=== PATIENT | male | born 1950 | race Caucasian/White ===

== ENCOUNTER 2017-05-11 17:58 | Inpatient (IN) | payer MEDICARE, OTHER ==
[2017-05-11] MEDS ORDERED: IPRATROPIUM-ALBUTEROL 3 ML NEB INHALATION PRN (22:14)
[2017-05-11] MEDS ORDERED: NITROGLYCERIN SL TABS 0.4 MG TAB SUBLINGUAL PRN (22:14)
[2017-05-11] MEDS ORDERED: ALBUTEROL INHALER 60 PUFF/8 GM INHALER INHALATION PRN (22:14)
[2017-05-11] MEDS ORDERED: ALBUTEROL NEBULIZED 2.5 MG/3 ML INHALATION PRN (22:14)
[2017-05-11] MEDS ORDERED: NON-FORMULARY DRUG (Ipratropium Bromide [Atrovent Hfa] 2 PUFF) INHALATION PRN (22:14)
[2017-05-11 22:46] LABS: Anisocytosis Slight; CH 25.8; CHCM 30.1; HCT 36.6 % (39.0-53.0); HDW 2.83; HGB 10.9 gm/dL (13.0-17.5); Hypochromasia Marked; MCH 25.7 pg (25.0-35.0); MCHC 29.9 g/dL (31.0-37.0); MCV 85.9 fL (80.0-100.0); Mean Platelet Volume 7.3; RBC 4.26 m/uL (4.30-5.90); RDW 16.5 % (11.5-15.5); WBC 11.4 k/uL (3.8-10.6)
[2017-05-11 23:00] LABS: INR 2.8 (<1.1); Prothrombin Time 27.2 sec (9.0-12.0)
[2017-05-11] MEDS: ONDANSETRON 4 MG/2 ML VIAL IVP PRN (23:07)
[2017-05-11] MEDS: TAMSULOSIN 0.4 MG CAP.ER.24H PO SCH (23:07)
[2017-05-11] MEDS: MEXILETINE 150 MG CAP PO SCH (23:07)
[2017-05-11] MEDS: SODIUM CHLORIDE 0.9% 1,000 ML IV SCH (23:23)
[2017-05-11] MEDS ORDERED: SODIUM CHLORIDE 0.9% 1,000 ML IV ONE (23:38)
[2017-05-12] MEDS ORDERED: IPRATROPIUM-ALBUTEROL 3 ML NEB INHALATION SCH
[2017-05-12 00:27] LABS: Glucose,Whole Blood 108 mg/dL (75-99)
[2017-05-12] MEDS ORDERED: PHYTONADIONE 5 MG in SODIUM CHLORIDE 0.9% 50 ML IVPB STA (00:27)
[2017-05-12] MEDS ORDERED: PHYTONADIONE ORAL 5 MG/5 ML ORAL.SYRG PO STA (00:27)
[2017-05-12] MEDS: SODIUM CHLORIDE 0.9% 1,000 ML IV SCH (00:35)
[2017-05-12] MEDS ORDERED: SODIUM CHLORIDE 0.9% 500 ML IV ONE (01:49)
[2017-05-12 04:00] LABS: Anisocytosis Slight; Basophils % (A) 1 %; CH 25.6; CHCM 30.4; Eosinophils # (A) 0.4 k/uL (0-0.7); Eosinophils % (A) 4 %; HCT 30.3 % (39.0-53.0); HDW 2.86; Hypochromasia Marked; Luc # (Auto) 0.33; Luc % (Auto) 4; Lymphocytes # (A) 1.8 k/uL (1.0-4.8); Lymphocytes % (A) 20 %; MCH 25.6 pg (25.0-35.0); MCHC 30.4 g/dL (31.0-37.0); MCV 84.2 fL (80.0-100.0); Mean Platelet Volume 8.8; Monocytes # (A) 0.4 k/uL (0-1.0); Monocytes % (A) 5 %; Neutrophils # (A) 6.2 k/uL (1.3-7.7); Neutrophils % (A) 67 %; RDW 16.3 % (11.5-15.5); WBC 9.3 k/uL (3.8-10.6); WBC (Perox) 9.31
[2017-05-12 04:13] LABS: HGB 9.2 gm/dL (13.0-17.5)
[2017-05-12 04:28] LABS: Anion Gap 5 mmol/L; Blood Urea Nitrogen 20 mg/dL (9-20); Calcium 7.7 mg/dL (8.4-10.2); Carbon Dioxide 20 mmol/L (22-30); Chloride 112 mmol/L (98-107); Glucose 81 mg/dL (74-99); Non-African American GFR(MDRD) >60 (>60 ml/min/1.73 sqM); Potassium 4.2 mmol/L (3.5-5.1); Sodium 137 mmol/L (137-145)
[2017-05-12 04:55] LABS: INR 2.4 (<1.1); Prothrombin Time 23.1 sec (9.0-12.0)
[2017-05-12 04:57] LABS: Magnesium 1.8 mg/dL (1.6-2.3); Phosphorous 2.8 mg/dL (2.5-4.5)
[2017-05-12] MEDS ORDERED: Magnesium Replacement Protocol 1 EACH MISC MISCELLANE PRN (05:24)
[2017-05-12] MEDS: ONDANSETRON 4 MG/2 ML VIAL IVP PRN (06:41)
[2017-05-12] MEDS: MAGNESIUM SULFATE-D5W PMX 1 GM in DEXTROSE/WATER 1 100ML.BAG IVPB SCH ×2 (06:45→07:49)
[2017-05-12] MEDS: MEXILETINE 150 MG CAP PO SCH ×2 (07:50→17:02)
[2017-05-12] MEDS: ALLOPURINOL 100 MG TAB PO SCH ×2 (08:10→20:31)
[2017-05-12] MEDS: PANTOPRAZOLE 40 MG/10 ML VIAL IVP SCH (08:10)
[2017-05-12] MEDS: SYMBICORT 80-4.5 MCG INHALER INHALATION SCH ×2 (08:28→19:24)
[2017-05-12] MEDS: IPRATROPIUM-ALBUTEROL 3 ML NEB INHALATION SCH ×4 (08:28→19:25)
[2017-05-12] MEDS ORDERED: ASPIRIN 81 MG CHEW PO SCH (09:00)
[2017-05-12] MEDS ORDERED: CLOPIDOGREL 75 MG TAB PO SCH (09:00)
[2017-05-12] MEDS ORDERED: METOPROLOL SUCCINATE (ER) 50 MG TAB.ER.24H PO SCH (09:00)
[2017-05-12] MEDS ORDERED: ALLOPURINOL 100 MG TAB PO SCH (09:00)
[2017-05-12] MEDS ORDERED: SACUBITRIL/VALSARTAN 24 MG-26 MG TABLET PO SCH (09:00)
[2017-05-12] MEDS ORDERED: LEVOFLOXACIN 500MG-D5W PMX 500 MG in DEXTROSE/WATER 1 100ML.BAG IVPB SCH (09:00)
[2017-05-12] MEDS ORDERED: METOPROLOL TARTRATE 50 MG TAB PO SCH (09:00)
[2017-05-12] MEDS: LEVOFLOXACIN 500MG-D5W PMX 500 MG in DEXTROSE/WATER 1 100ML.BAG IVPB SCH (09:25)
[2017-05-12] MEDS: FUROSEMIDE 40 MG TAB PO SCH (09:26)
[2017-05-12] MEDS: SPIRONOLACTONE 25 MG TAB PO SCH (09:26)
[2017-05-12 10:28] LABS: Anisocytosis Slight; CH 25.8; HCT 27.5 % (39.0-53.0); HDW 2.83; HGB 8.5 gm/dL (13.0-17.5); Hypochromasia Marked; MCH 26.7 pg (25.0-35.0); RDW 16.3 % (11.5-15.5); WBC 8.3 k/uL (3.8-10.6)
--- NOTE | 2017-05-12 10:33 | HP ---
DATE OF ADMISSION: 05/11/2017 CHIEF COMPLAINT: Lower gastrointestinal bleeding. HISTORY OF PRESENT ILLNESS: This 66-year-old gentleman with a past medical history of COPD, DVT, gastroesophageal reflux disease, history of myocardial infarction, history of DJD, history of pulmonary embolus, obstructive sleep apnea, history of AICD, cardiac ablation, history of cholecystectomy, coronary artery disease, coronary artery bypass grafting, history of coronary artery disease, stent being followed by a primary physician in [place] are presented to [facility] and subsequently referred to [facility] with direct admission for lower gastrointestinal bleeding. Bleeding started last night, mild to moderate quantity but continued throughout two days and multiple episodes of bleeding and the patient also complained of lower abdominal cramping. The CAT scan done in [facility] showed evidence of diverticulitis and the patient admitted for further evaluation and treatment. There is no history of any fever, rigors or chills. No history of headache, loss of consciousness, seizures. PAST MEDICAL HISTORY: COPD, DVT, gastroesophageal reflux disease, myocardial infarction, DJD, pulmonary embolism, sleep apnea, history of AICD , cardiac ablation, CBD and stent. Medications prior to admission include home medications are: 1. Coumadin 6 mg Tuesday, and Tuesday, 4 mg Tuesday, Tuesday, Tuesday and Tuesday. 2. Flomax 0.4 q6h p.r.n. 3. Aldactone 25 mg daily. 4. Entresto 24/26.5 mg b.i.d. 5. Nitrostat 0.4 sublingual p.r.n. 6. Multivitamins one p.o. daily. 7. Mexitil 150 mg q.8. 8. Metoprolol 50 mg p.o. daily. 9. Atrovent 2 puffs p.o. t.i.d. p.r.n. 10. Lasix 40 mg daily. 11. Advair 250/50 1 puff b.i.d. 12. Plavix 75 milligrams daily. 13. Celebrex 200 mg q.h.s. 14. Aspirin 81 mg daily. 15. Zyloprim 200 mg b.i.d. 16. Pro-Air HFA 1 puff p.o. daily. 17. Ventolin 2.5 q.i.d. p.r.n. ALLERGIES: ALAROCUMB, STATINS, STEROIDS. FAMILY HISTORY: History of cancer, leukemia in the family. SOCIAL HISTORY: Previous history of smoking. Occasional alcohol intake. REVIEW OF SYSTEMS: ENT: As mentioned earlier. CARDIOVASCULAR: As mentioned earlier. RESPIRATORY: As mentioned earlier. GI: As mentioned earlier. GI: As mentioned earlier. : No dysuria. Nervous system: No numbness, weakness. ALLERGY/IMMUNOLOGY: No asthma or hayfever. MUSCULOSKELETAL: As mentioned earlier. HEMATOLOGY/ONCOLOGY: As mentioned earlier. ENDOCRINE: no history of diabetes, hypothyroidism. CONSTITUTIONAL: As mentioned earlier. DERMATOLOGY: Negative. RHEUMATOLOGY: Negative. PSYCHIATRY: As mentioned earlier. PHYSICAL EXAMINATION: The patient is alert and oriented times three. Pulse is 73, blood pressure 81/51, respiratory rate 16, temperature 97.3, pulse ox 97% on room air. HEENT: Conjunctivae pale. Oral mucosa moist. NECK: No jugular venous distention. No carotid bruit. No lymph node enlargement. CARDIOVASCULAR: S1, S2 muffled. No S3, no S4. RESPIRATORY: Breath sounds diminished at the bases. A few scattered rhonchi, no crackles. ABDOMEN: Soft. Mild diffuse discomfort in the lower part of the abdomen. No guarding. No rigidity. No mass palpable. Bowel sounds present. There is no ascites. Legs: No edema. No swelling. Nervous system: Higher function as mentioned. Moves all four limbs. No focal deficits. LYMPHATICS: No lymph nodes palpable in the neck, axillae or groin. SKIN: No ulcer, rash or bleeding. LABS: WBC 11.2, hemoglobin is 10.9. Platelets are 206. INR is 2.8. ASSESSMENT: 1. Acute lower gastrointestinal bleeding with possibly diverticulosis and diverticulitis with acute blood loss anemia. 2. Hypertension and hypertensive shock secondary to blood loss anemia. 3. Increased WBC. 4. Anemia, normocytic. 5. Coumadin monitoring. 6. History of chronic obstructive pulmonary disease. 7. History of deep venous thrombosis and pulmonary embolus. 8. History of gastroesophageal reflux disease. 9. History of myocardial infarction. 10. History of sleep apnea. 11. History of degenerative joint disease. 12. History of sleep apnea uses CPAP. 13. History of automatic implantable cardioverter defibrillator. 14. History of cardiac catheterization ablation. 15. History of cholecystectomy. 16. History of coronary artery disease, coronary artery bypass grafting and stenting. 17. History of nicotine dependence. 18. Obesity, body mass index of 30.7. 19. FULL CODE. RECOMMENDATIONS AND DISCUSSION: In this 66 -year-old who presented with multiple complex medical issues, we will monitor the patient closely. Continue with current medications. Continue symptomatic treatment. I recommend to hold the antiplatelet agents and continue to monitor. The patient has significant GI bleed resulting in hypotension. I would recommend reversal of Coumadin as well. Monitor in ICU closely with Dr. Spann, gastroenterology and also cardiology as well. The prognosis is guarded because of multiple complex medical issues. Further recommendations to follow. See orders for further details. We will hold the antihypertensive medications also for now.
--- NOTE | 2017-05-12 10:38 | P.CNPUL ---
History of Present Illness Consult date: 05/12/17 Requesting physician: Dony Valdez Reason for consult: other (Critical care management) Chief complaint: GI bleed History of present illness: This is a very pleasant 66-year-old woman who follows with Dr. Russell in the [place] area. He has a past history of chronic obstructive pulmonary disease treated with Advair and pro-air, former smoker quit in 2012, sleep apnea does not utilize CPAP, hyperlipidemia, benign prosthetic hypertrophy, myocardial infarctions 2, ischemic cardiomyopathy with ejection fraction less than 20%, status post AICD placement, ablations, status post coronary bypass surgery. Has has a history of atrial fibrillation, PE/DVT, Syed filter placement he is anticoagulated with warfarin. He does have a history of diverticulosis diagnosed proximal a 5-6 years ago and then had an episode of bleeding most recently 1-1/2 years ago. 2 evenings ago he started having painless dark stools and presented to [place] for the same. A computed tomography scan of the abdomen did reveal evidence of diverticulosis without diverticulitis. There is a stable distal abdominal aortic aneurysm. Evidence of cholecystectomy. He was subsequently transferred here directly to the selective care unit. Once there he continued to have evidence of GI bleeding and hypotension and was subsequently transferred here to the intensive care unit. He is seen today in consultation. He is currently awake and alert in no acute distress. His hemoglobin has drifted from 10.9-9.2 currently. His initial INR was 2.8 currently 2.4 he did receive vitamin K. He does have complaints of vague abdominal pain otherwise no other complaints. No shortness of breath, cough or congestion. No chest pain palpitations lightheadedness or dizziness. His mean arterial pressure has remained 60-65. Not currently on any pressors. His 0.9 normal saline at 60 miles per hour. Maintaining O2 saturations in the 90s on room air. Review of Systems 14 point review of system was conducted. All negative other than as mentioned in HPI. Past Medical History Past Medical History: COPD, Deep Vein Thrombosis (DVT), GERD/Reflux, Myocardial Infarction (CA), Osteoarthritis (OA), Pulmonary Embolus (PE), Sleep Apnea/CPAP/ BIPAP Additional Past Medical History / Comment(s): SLEEP APNEA DOES'NT USE CPAP MACHINE. SEE DR JURADO H&P, "NOSE BLEEDS SINCE TUESDAY" (2016) Last Myocardial Infarction Date:: 1998 History of Any Multi-Drug Resistant Organisms: None Reported Past Surgical History: AICD, Cardiac Ablation, Cholecystectomy, Coronary Bypass/ CABG, EPS, Heart Catheterization With Stent, Orthopedic Surgery Additional Past Surgical History / Comment(s): CARDIOVERSIONS, CABG X4 (10/28/13) , STENT X3, SYED FILTER, RT ANKLE SX WITH MESH. 03-02-16 ep study-see dr jurado h&p Past Anesthesia/Blood Transfusion Reactions: No Reported Reaction Additional Past Anesthesia/Blood Transfusion Reaction / Comment(s): MOM PONV Date of Last Stent Placement:: 04/2015 Type of Cardiac Device: AICD Device Placement Date:: UNKNOWN, Attention Point Past Psychological History: No Psychological Hx Reported Additional Psychological History / Comment(s): PT LIVES WITH HIS IS INDEPENDANT BUT ON DISBILTY. 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 Smoking Status: Former smoker Past Alcohol Use History: None Reported Additional Past Alcohol Use History / Comment(s): STARTED SMOKING 1967-QUIT 2012 , SMOKED 1 AND 1/2PPD Past Drug Use History: None Reported - Past Family History Brother(s) Family Medical History: Cancer Additional Family Medical History / Comment(s): LEUKEMIA Mother Additional Family Medical History / Comment(s): ENLARGED HEART Father Additional Family Medical History / Comment(s): BLOOD CLOT IN THE BRAIN Medications and Allergies Home Medications Medication Instructions Recorded Confirmed Type Albuterol Sulfate [Proair Hfa] 1 puff INHALATION RT-QID PRN 04/23/14 05/11/17 History Aspirin 81 mg PO DAILY 04/23/14 05/11/17 History Fluticasone/Salmeterol [Advair 1 puff INHALATION RT-BID 04/23/14 05/11/17 History 250-50 Diskus] Spironolactone [Aldactone] 25 mg PO DAILY 04/23/14 05/11/17 History Warfarin Sodium [Coumadin] 4 mg PO SUMOWEFR 04/23/14 05/11/17 History Ipratropium [place] [Atrovent Hfa] 2 puff INHALATION RT-TID PRN 05/28/14 History Furosemide [Lasix] 40 mg PO DAILY 04/22/15 05/11/17 History Albuterol Nebulized [Ventolin 2.5 mg INHALATION RT-QID PRN 02/26/16 05/11/17 History Nebulized] Sacubitril/Valsartan [Entresto 24 0.5 tab PO BID 02/26/16 05/11/17 History mg-26 mg Tablet] Allopurinol [Zyloprim] 200 mg PO BID 05/11/17 05/11/17 History Celecoxib [CeleBREX] 200 mg PO HS 05/11/17 05/11/17 History Metoprolol Succinate (ER) [Toprol 50 mg PO BID 05/11/17 05/11/17 History Xl] Multivitamins, Thera [Multivitamin 1 tab PO DAILY 05/11/17 05/11/17 History (formulary)] Tamsulosin [Flomax] 0.4 mg PO HS 05/11/17 05/11/17 History Warfarin Sodium [Coumadin] 6 mg PO TUTHSA 05/11/17 05/11/17 History Allergies Allergy/AdvReac Type Severity Reaction Status Date / Time alirocumab Allergy Swelling Verified 05/11/17 22:19 [From Praluent Pen] [id number]-Pip-Cqo Reductase Allergy Swelling/My Verified 05/11/17 22:19 Inhibitor algia steriods AdvReac Abdominal Uncoded 05/11/17 22:19 Pain/Constipation Physical Exam Vitals: Vital Signs Temp Pulse Pulse Resp BP BP BP 05/12/17 09:00 83 21 88/61 05/12/17 08:40 65 05/12/17 08:32 63 05/12/17 08:30 74 19 90/65 05/12/17 08:00 71 67 16 90/65 05/12/17 07:30 98.2 F 76 21 93/63 05/12/17 07:00 70 89/58 05/12/17 06:30 71 14 89/58 05/12/17 06:00 77 16 91/67 05/12/17 05:30 84 16 91/67 05/12/17 05:00 66 17 91/61 05/12/17 04:30 73 23 97/64 05/12/17 04:00 98.2 F 79 67 13 94/55 05/12/17 03:30 70 14 93/61 05/12/17 03:00 64 14 92/66 05/12/17 02:30 74 14 92/52 05/12/17 02:00 72 14 92/53 05/12/17 01:30 72 26 H 97/66 05/12/17 01:00 98.2 F 68 21 101/63 05/12/17 00:30 75 9 L 107/71 05/12/17 00:16 79 14 107/71 05/11/17 23:05 97.3 F L 73 16 81/51 05/11/17 20:31 97.3 F L 65 16 105/72 Pulse Ox 05/12/17 09:00 05/12/17 08:40 05/12/17 08:32 05/12/17 08:30 99 05/12/17 08:00 97 05/12/17 07:30 99 05/12/17 07:00 05/12/17 06:30 05/12/17 06:00 05/12/17 05:30 05/12/17 05:00 99 05/12/17 04:30 96 05/12/17 04:00 98 05/12/17 03:30 95 05/12/17 03:00 97 05/12/17 02:30 97 05/12/17 02:00 98 05/12/17 01:30 99 05/12/17 01:00 99 05/12/17 00:30 99 05/12/17 00:16 100 05/11/17 23:05 97 05/11/17 20:31 99 Intake and Output 05/11/17 05/12/17 05/12/17 22:59 06:59 14:59 Intake Total 1740 280 Output Total 0 Balance 1740 280 Intake: IV 1740 180 Sodium Chloride 0.9% 1, 240 180 000 ml @ 60 mls/hr IV . [id number] COUNTS INCLUDE 234 BEDS AT THE [facility] Rx#:[id number] Sodium Chloride 0.9% 1, 1000 000 ml @ 999 mls/hr IV . Q1H1M ONE Rx#:[id number] Sodium Chloride 0.9% 500 500 ml @ 999 mls/hr IV .Q31M ONE Rx#:[id number] Intake, IV Titration 100 Amount Magnesium Sulfate-D5w Pmx 100 1 gm In Dextrose/Water 1 100ml.bag @ 100 mls/hr IVPB Q1H COUNTS INCLUDE 234 BEDS AT THE [facility] Rx#: [id number] Output: Urine 0 Other: Voiding Method Urinal Urinal # Voids 1 # Bowel Movements 2 1 1 Weight 97.069 kg 96.1 kg GENERAL EXAM: Alert, fairly comfortable in no apparent distress. HEAD: Normocephalic. EYES: Normal reaction of pupils, equal size. NOSE: Clear with pink turbinates. THROAT: There is crowding of the posterior pharynx. No erythema or exudates. NECK: No masses, no JVD. CHEST: No chest wall deformity. LUNGS: Equal air entry with no crackles, wheeze, rhonchi or dullness. CVS: S1 and S2 normal with an audible murmur, irregular rhythm. ABDOMEN: No hepatosplenomegaly, normal bowel sounds, no guarding or rigidity. SPINE: No scoliosis or deformity SKIN: No rashes CENTRAL NERVOUS SYSTEM: No focal deficits, tone is normal in all 4 extremities. Extremities: There is no significant peripheral edema. No clubbing, no cyanosis. Peripheral pulses are intact. Results - Laboratory Findings CBC and BMP: 05/12/17 03:52 05/12/17 03:52 PT/INR, D-dimer PT 23.1 sec (9.0-12.0) H 05/12/17 03:52 INR 2.4 (<1.1) 05/12/17 03:52 Abnormal lab findings: Abnormal Labs 05/11/17 05/11/17 05/12/17 22:25 22:28 00:07 WBC 11.4 H RBC 4.26 L Hgb 10.9 L Hct 36.6 L MCHC 29.9 L RDW 16.5 H PT 27.2 H Chloride Carbon Dioxide POC Glucose (mg/dL) 108 H Calcium 05/12/17 05/12/17 05/12/17 03:52 03:52 03:52 WBC RBC 3.60 L Hgb 9.2 L D Hct 30.3 L MCHC 30.4 L RDW 16.3 H PT 23.1 H Chloride 112 H Carbon Dioxide 20 L POC Glucose (mg/dL) Calcium 7.7 L Assessment and Plan Plan: Impression: #1 Acute gastrointestinal bleeding secondary to diverticulosis. Current hemoglobin 9.2. No transfusions required as far. #2 Coagulopathy secondary to warfarin, did receive vitamin K 2 current INR 2.4. Levaquin discontinued. #3 Coronary artery disease status post coronary artery bypass grafting in 2012, previous stent placements 3. #4 Atrial fibrillation status post cardioversions and ablations. #5 Severe ischemic cardiomyopathy with an ejection fraction less than 20%, status post AICD. #6 Hyperlipidemia. #7 Chronic obstructive pulmonary, currently inactive and stable. #8 History of chronic tobacco dependence quit in 2012. #9 Previous history of diverticulosis proximal a 5-6 years ago, recurrent bleeding approximately 1-1/2 years ago. Plan: The patient was seen and evaluated by Dr. Spann. The patient's labs were reviewed. His blood pressure does remain borderline. We'll give him one more liter of fluid resuscitation. He may require pressor support. Continue to monitor hemoglobin closely. Tinea IV Protonix. Await GI input. He remains on Symbicort and DuoNeb's. We'll continue to monitor him here in the intensive care unit. Critical care time 36 minutes. Time with Patient: Greater than 30
--- NOTE | 2017-05-12 10:42 | ECHOF ---
Referral Reason:cm MEASUREMENTS -------- HEIGHT: 180.3 cm WEIGHT: 95.7 kg BP: 96/61 IVSd: 1.0 cm (0.6 - 1.1) LVIDd: 6.5 cm (3.9 - 5.3) LVPWd: 0.9 cm (0.6 - 1.1) IVSs: 1.2 cm LVIDs: 6.2 cm LVPWs: 1.1 cm LAESV Index (A-L): 49.51 ml/m Ao Diam: 3.5 cm (2.0 - 3.7) AV Cusp: 1.8 cm (1.5 - 2.6) LA Diam: 5.2 cm (2.7 - 3.8) MV EXCURSION: 20.694 mm (> 18.000) MV EF SLOPE: 69 mm/s (70 - 150) EPSS: 2.2 cm MV E Adin: 1.01 m/s MV DecT: 167 ms MV A Adin: 0.46 m/s MV E/A Ratio: 2.21 AR PHT: 405 ms RAP: 5.00 mmHg RVSP: 34.94 mmHg FINDINGS -------- Pacerwire seen in RV and RA. AICD This was a technically good study. The left ventricle is moderately dilated. There is severe global hypokinesis of LV . Overall left ventricular systolic function is severely impaired with, an EF between 25 - 30 %. Mitral Doppler inflow pattern suggests diastolic filling abnormality 22.28. Known cardiomyopathy The right ventricle is normal in size and function. LA is severely dilated >40 ml/m2 The right atrium is normal in size. Aortic valve is trileaflet and is mildly thickened. Trace amount of aortic regurgitation. The mitral valve leaflets are mildly thickened. Mild mitral regurgitation is present. Mild tricuspid regurgitation present. The right ventricular systolic pressure, as measured by Doppler, is 34.94mmHg. Pulmonic valve appears structurally normal. The aortic root size is normal. Normal inferior vena cava with normal inspiratory collapse consistent with estimated right atrial pressure of 5 mmHg. The pericardium is normal. CONCLUSIONS -------- 1. Pacerwire seen in RV and RA. 2. LA is severely dilated >40 ml/m2 3. The right atrium is normal in size. 4. Aortic valve is trileaflet and is mildly thickened. 5. Trace amount of aortic regurgitation. 6. The mitral valve leaflets are mildly thickened. 7. Mild mitral regurgitation is present. 8. Mild tricuspid regurgitation present. 9. The right ventricular systolic pressure, as measured by Doppler, is 34.94mmHg. 10. Pulmonic valve appears structurally normal. 11. The aortic root size is normal. 12. AICD 13. Normal inferior vena cava with normal inspiratory collapse consistent with estimated right atrial pressure of 5 mmHg. 14. The pericardium is normal. 15. This was a technically good study. 16. The left ventricle is moderately dilated. 17. There is severe global hypokinesis of LV . 18. Overall left ventricular systolic function is severely impaired with, an EF between 25 - 30 %. 19. Mitral Doppler inflow pattern suggest diastolic filling abnormality 22.28. 20. Known cardiomyopathy 21. The right ventricle is normal in size and function. SOCIAL WORK FACULTY MEMBER: Lissett Ramirez RDCS
--- NOTE | 2017-05-12 11:33 | P.CONS ---
History of Present Illness - Reason for Consult Consult date: 05/12/17 GI bleed Requesting physician: Dony Valdez - History of Present Illness 66-year-old gentleman patient of Dr. Drew Rojas with a history of UT, CABG, DVT PE atrial fibrillation Coumadin maintenance AICD CAD with PCI [place] filter and COPD presents with acute GI bleed. Yesterday he developed lower abdominal discomfort followed by crampy burgundy liquid diarrhea. Denies hematemesis coffee ground emesis. No NSAID or aspirin usage. No alcohol. Episode of lower GI bleed rectal bleeding 1-2 years ago without requiring medical treatment. Last colonoscopy to his memory 5 years ago; diverticular disease. No EGD recently. Admission INR 2.8 presently 2.4. Hemoglobin 10.9 presently 8.5. Platelet 178. BUN 20 creatinine 1.1. Echo tenses yesterday transferred to the ICU for further monitoring. No pressors. Denies chest pain or shortness of breath. Review of Systems Constitutional: Denies fever, chills, sweats, weight gain, or loss. HEENT: Negative for migraines, blurred vision or loss, earaches, drainage, tinnitus, oral mucosal lesions, dysphagia, or odynophagia. Cardiac: A. fib. PE DVT. UT. CAD. CABG. AICD. Negative for chest pain, arrhythmias, or palpitation. Respiratory: COPD. DIPTI. Negative for shortness of breath, hemoptysis, cough, or sputum production. Gastrointestinal: See HPI for pertinent findings. Genitourinary: Negative for hematuria, urgency, frequency, polyuria, dysuria, or penile discharge. Musculoskeletal: Negative for muscle aches, swelling, arthritis, and arthralgias. Neurologic: Negative for stroke or TIA. Endocrine: Negative for thyroid problems. Skin: Negative for rash or itching. Psychiatric: Negative history for depression and anxiety All systems: negative (See HPI) Past Medical History Past Medical History: COPD, Deep Vein Thrombosis (DVT), GERD/Reflux, Myocardial Infarction (UT), Osteoarthritis (OA), Pulmonary Embolus (PE), Sleep Apnea/CPAP/ BIPAP Additional Past Medical History / Comment(s): SLEEP APNEA DOES'NT USE CPAP MACHINE. SEE DR ADRIEN Argueta&P, "NOSE BLEEDS SINCE TUESDAY" (2016) Last Myocardial Infarction Date:: 1998 History of Any Multi-Drug Resistant Organisms: None Reported Past Surgical History: AICD, Cardiac Ablation, Cholecystectomy, Coronary Bypass/ CABG, EPS, Heart Catheterization With Stent, Orthopedic Surgery Additional Past Surgical History / Comment(s): CARDIOVERSIONS, CABG X4 (10/28/13) , STENT X3, SYED FILTER, RT ANKLE SX WITH MESH. 03-02-16 ep study-see dr gusman h&p Past Anesthesia/Blood Transfusion Reactions: No Reported Reaction Additional Past Anesthesia/Blood Transfusion Reaction / Comm: MOM PONV Date of Last Stent Placement:: 04/2015 Type of Cardiac Device: AICD Device Placement Date:: UNKNOWN, Goodreads Past Psychological History: No Psychological Hx Reported Additional Psychological History / Comment(s): PT LIVES WITH HIS IS INDEPENDANT BUT ON DISBILTY. 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 Smoking Status: Former smoker Past Alcohol Use History: None Reported Additional Past Alcohol Use History / Comment(s): STARTED SMOKING 1967-QUIT 2012 , SMOKED 1 AND 1/2PPD Past Drug Use History: None Reported - Past Family History Brother(s) Family Medical History: Cancer Additional Family Medical History / Comment(s): LEUKEMIA Mother Additional Family Medical History / Comment(s): ENLARGED HEART Father Additional Family Medical History / Comment(s): BLOOD CLOT IN THE BRAIN Medications and Allergies Home Medications Medication Instructions Recorded Confirmed Type Albuterol Sulfate [Proair Hfa] 1 puff INHALATION RT-QID PRN 04/23/14 05/11/17 History Aspirin 81 mg PO DAILY 04/23/14 05/11/17 History Fluticasone/Salmeterol [Advair 1 puff INHALATION RT-BID 04/23/14 05/11/17 History 250-50 Diskus] Spironolactone [Aldactone] 25 mg PO DAILY 04/23/14 05/11/17 History Warfarin Sodium [Coumadin] 4 mg PO SUMOWEFR 04/23/14 05/11/17 History Ipratropium [place] [Atrovent Hfa] 2 puff INHALATION RT-TID PRN 05/28/14 History Furosemide [Lasix] 40 mg PO DAILY 04/22/15 05/11/17 History Albuterol Nebulized [Ventolin 2.5 mg INHALATION RT-QID PRN 02/26/16 05/11/17 History Nebulized] Sacubitril/Valsartan [Entresto 24 0.5 tab PO BID 02/26/16 05/11/17 History mg-26 mg Tablet] Allopurinol [Zyloprim] 200 mg PO BID 05/11/17 05/11/17 History Celecoxib [CeleBREX] 200 mg PO HS 05/11/17 05/11/17 History Metoprolol Succinate (ER) [Toprol 50 mg PO BID 05/11/17 05/11/17 History Xl] Multivitamins, Thera [Multivitamin 1 tab PO DAILY 05/11/17 05/11/17 History (formulary)] Tamsulosin [Flomax] 0.4 mg PO HS 05/11/17 05/11/17 History Warfarin Sodium [Coumadin] 6 mg PO TUTHSA 05/11/17 05/11/17 History Allergies Allergy/AdvReac Type Severity Reaction Status Date / Time alirocumab Allergy Swelling Verified 05/11/17 22:19 [From Praluent Pen] [id number] Reductase Allergy Swelling/My Verified 05/11/17 22:19 Inhibitor algia steriods AdvReac Abdominal Uncoded 05/11/17 22:19 Pain/Constipation Physical Exam Vitals: Vital Signs Temp Pulse Pulse Resp BP BP BP 05/12/17 10:00 71 22 85/57 05/12/17 09:00 83 21 88/61 05/12/17 08:40 65 05/12/17 08:32 63 05/12/17 08:30 74 19 90/65 05/12/17 08:00 71 67 16 90/65 05/12/17 07:30 98.2 F 76 21 93/63 05/12/17 07:00 70 89/58 05/12/17 06:30 71 14 89/58 05/12/17 06:00 77 16 91/67 05/12/17 05:30 84 16 91/67 05/12/17 05:00 66 17 91/61 05/12/17 04:30 73 23 97/64 05/12/17 04:00 98.2 F 79 67 13 94/55 05/12/17 03:30 70 14 93/61 05/12/17 03:00 64 14 92/66 05/12/17 02:30 74 14 92/52 05/12/17 02:00 72 14 92/53 05/12/17 01:30 72 26 H 97/66 05/12/17 01:00 98.2 F 68 21 101/63 05/12/17 00:30 75 9 L 107/71 05/12/17 00:16 79 14 107/71 05/11/17 23:05 97.3 F L 73 16 81/51 05/11/17 20:31 97.3 F L 65 16 105/72 Pulse Ox 05/12/17 10:00 95 05/12/17 09:00 05/12/17 08:40 05/12/17 08:32 05/12/17 08:30 99 05/12/17 08:00 97 05/12/17 07:30 99 05/12/17 07:00 05/12/17 06:30 05/12/17 06:00 05/12/17 05:30 05/12/17 05:00 99 05/12/17 04:30 96 05/12/17 04:00 98 05/12/17 03:30 95 05/12/17 03:00 97 05/12/17 02:30 97 05/12/17 02:00 98 05/12/17 01:30 99 05/12/17 01:00 99 05/12/17 00:30 99 05/12/17 00:16 100 05/11/17 23:05 97 05/11/17 20:31 99 Intake and Output 05/11/17 05/12/17 05/12/17 22:59 06:59 14:59 Intake Total 1740 840 Output Total 0 Balance 1740 840 Intake: IV 1740 740 Sodium Chloride 0.9% 1, 240 740 000 ml @ 60 mls/hr IV . [id number] MATEUS Rx#:[id number] Sodium Chloride 0.9% 1, 1000 000 ml @ 999 mls/hr IV . Q1H1M ONE Rx#:[id number] Sodium Chloride 0.9% 500 500 ml @ 999 mls/hr IV .Q31M ONE Rx#:[id number] Intake, IV Titration 100 Amount Magnesium Sulfate-D5w Pmx 100 1 gm In Dextrose/Water 1 100ml.bag @ 100 mls/hr IVPB Q1H MATEUS Rx#: [id number] Output: Urine 0 Other: Voiding Method Urinal Urinal # Voids 1 # Bowel Movements 2 1 1 Weight 97.069 kg 96.1 kg General appearance: The patient is alert, oriented, in no acute distress. HET: Head is normocephalic and atraumatic. Pupils are equal and reactive. Oropharynx is clear without lesions. Neck: Supple without lymphadenopathy. Trachea midline. Heart: S1 S2. Regular rate and rhythm. Lungs: No crackles or wheezes are heard. Abdomen: Soft, left-sided abdominal tenderness, nondistended with bowel sounds. No peritoneal signs. No palpable organomegaly or masses. Extremities: Normal skin color and turgor. No cyanosis, rash, ulceration, clubbing, or edema. Radial and pedal pulses are 2/4 bilaterally. Neurological: No focal deficits. Strength and sensation are grossly intact. Results CBC & Chem 7: 05/12/17 10:03 05/12/17 03:52 Labs: Abnormal Lab Results - Last 24 Hours (Table) 05/11/17 05/11/17 05/12/17 Range/Units 22:25 22:28 00:07 WBC 11.4 H (3.8-10.6) k/uL RBC 4.26 L (4.30-5.90) m/uL Hgb 10.9 L (13.0-17.5) gm/dL Hct 36.6 L (39.0-53.0) % MCHC 29.9 L (31.0-37.0) g/dL RDW 16.5 H (11.5-15.5) % PT 27.2 H (9.0-12.0) sec Chloride (98-107) mmol/L Carbon Dioxide (22-30) mmol/L POC Glucose (mg/dL) 108 H (75-99) mg/dL Calcium (8.4-10.2) mg/dL 05/12/17 05/12/17 05/12/17 Range/Units 03:52 03:52 03:52 WBC (3.8-10.6) k/uL RBC 3.60 L (4.30-5.90) m/uL Hgb 9.2 L D (13.0-17.5) gm/dL Hct 30.3 L (39.0-53.0) % MCHC 30.4 L (31.0-37.0) g/dL RDW 16.3 H (11.5-15.5) % PT 23.1 H (9.0-12.0) sec Chloride 112 H (98-107) mmol/L Carbon Dioxide 20 L (22-30) mmol/L POC Glucose (mg/dL) (75-99) mg/dL Calcium 7.7 L (8.4-10.2) mg/dL 05/12/17 Range/Units 10:03 WBC (3.8-10.6) k/uL RBC 3.20 L (4.30-5.90) m/uL Hgb 8.5 L (13.0-17.5) gm/dL Hct 27.5 L (39.0-53.0) % MCHC (31.0-37.0) g/dL RDW 16.3 H (11.5-15.5) % PT (9.0-12.0) sec Chloride (98-107) mmol/L Carbon Dioxide (22-30) mmol/L POC Glucose (mg/dL) (75-99) mg/dL Calcium (8.4-10.2) mg/dL Assessment and Plan (1) Acute GI bleeding Narrative/Plan: 66-year-old gentleman with a history of significant cardiac history including atrial fibrillation with Coumadin monitoring, PE DVT, CAD UT with AICD CABG presents with acute lower GI bleed burgundy-colored bowel movements with abdominal pain and hypotension with history of underlying diverticulosis most likely exacerbated by Coumadin-induced coagulopathy. Suspect bleeding could be related to diverticular bleeding however ischemic colitis needs to be kept within the differential. Upper GI pathology cannot be entirely excluded. Status: Acute (2) Acute blood loss anemia Status: Acute (3) Warfarin-induced coagulopathy Status: Acute (4) Symptomatic anemia Status: Acute Plan: 1. Protonix 40 mg IV daily. 2. CBC monitoring. 3. Clear liquid diet. 4. EGD colonoscopy once INR is 1.5 or less. Endoscopy as early as Tuesday pending clinical course. 5. Hold Coumadin. Will follow closely with you. The liquid loader has discussed the risks, benefits and alternative therapies for the above-mentioned procedure and for both sedation/analgesia as well as necessary blood product administration, if indicated, as they pertain to this patient. The patient has indicated understanding and acceptance of the risks and procedures discussed. Thank you for this kind referral and the opportunity to participate in the care of your patient. This consultation was discussed with Dr. Alejandro. The impression and plan of care have been directed as dictated.
[2017-05-12] MEDS: METOPROLOL SUCCINATE (ER) 25 MG TAB.ER.24H PO SCH (11:52)
--- NOTE | 2017-05-12 12:40 | CONS ---
DATE OF CONSULTATION: Mr. Dinh is a 66-year-old male who was transferred from [facility] because of GI bleeding. Patient has been followed by Dr. Good on a regular basis. He has a known history of severe ischemic cardiomyopathy, status post ICD implant, history of atrial fibrillation, history of sustained ventricular tachycardia who presented with symptoms of lower GI bleeding. He had prior similar symptoms in the past and was diagnosed with diverticulosis. He has some nausea. His breathing has been stable. He is denying any chest pain. He denies any palpitation. He has no peripheral edema. No clear PND. No orthopnea. According to him, he had a discharge from the device about 2 months ago because he was not taking his medication. His ejection fraction in the past was in the 20%. He does not feel that his cardiac status is any different than before. He has prior history of drug-induced myopathy and has not been on a statin. His level of activity has been stable up to this admission. On presentation, he was hypotensive and was given fluid. His blood pressure is running in the high 80s, but he is asymptomatic. According to him, his baseline blood pressure is in the low 100s. His coronary risk factors are remarkable for history of hypertension, remote history of smoking as well as prior history of hyperlipidemia. His medications include Coumadin, Flomax, Aldactone 25 mg daily, Entresto 24- 26 mg daily, Mexitil 150 mg 3 times a day, Toprol XL 50 mg twice a day, Lasix 40 mg daily, Plavix 75 mg daily, aspirin once a day, Zyloprim, ProAir and Ventolin. REVIEW OF SYSTEMS: RESPIRATORY SYSTEM: He has no recent wheezing. No cough or fever. GI SYSTEM: He had the GI bleeding as noted, the nausea and prior history of diverticulosis. SYSTEM: No dysuria or hematuria. NERVOUS SYSTEM: No history of stroke or seizure. PHYSICAL EXAMINATION: A 66-year-old male, alert, oriented, in no apparent distress. Blood pressure 96/60 with the heart rate in the 70s. HEAD: Normocephalic. EYES: Sclerae anicteric. NECK: No bruit. LUNGS: Clear to auscultation. HEART: Irregular, irregular. S1, S2, no S3, with systolic murmur at the base. No diastolic murmur. ABDOMEN: Soft, nontender, positive bowel sounds. EXTREMITIES: No edema. LAB DATA: Hemoglobin of 9.2. His INR is 2.4. It was 2.8 yesterday. BUN and creatinine of 20 and 1.1. Potassium 4.2. His EKG shows atrial fibrillation with ventricular pacing. IMPRESSION: 1. Lower gastrointestinal bleeding appears to be related to diverticulosis. Patient had a known history of diverticulosis. 2. Severe ischemic cardiomyopathy, status post bi-V ICD implant. 3. Atrial fibrillation. 4. Status post coronary artery bypass grafting and percutaneous revascularization. 5. 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 6. History of ventricular tachycardia. 7. Hypotension, at this point related to the bleeding. RECOMMENDATION: Will hold the Entresto and the diuretic at this time. I will start him on a lower dose of beta betty. I will obtain echocardiogram with Doppler. His Coumadin is on hold. Patient does not require to go back on Plavix, since his stent was done more than a year ago and he can be on Coumadin alone, at this time he has stable chronic coronary artery disease. Once his GI bleeding is stabilized, then I would recommend to resume his Coumadin, but I will avoid antiplatelet treatment. Thank you for this consult. We will follow with you.
[2017-05-12] MEDS ORDERED: SODIUM CHLORIDE 0.9% 1,000 ML IV ONE (14:48)
[2017-05-12 16:34] LABS: Anisocytosis Slight; CH 25.2; HCT 23.7 % (39.0-53.0); HDW 2.91; HGB 7.8 gm/dL (13.0-17.5); Hypochromasia Marked; MCH 27.9 pg (25.0-35.0); MCHC 33.1 g/dL (31.0-37.0); MCV 84.2 fL (80.0-100.0); Mean Platelet Volume 7.5; RBC 2.81 m/uL (4.30-5.90); RDW 16.1 % (11.5-15.5); WBC 7.4 k/uL (3.8-10.6)
--- NOTE | 2017-05-12 19:48 | PN ---
DATE OF SERVICE: 05/12/2017 This is a 66-year-old gentleman admitted with lower gastrointestinal bleeding, being closely monitored. Patient has possible diverticular bleed. The patient also has abdominal discomfort in the lower part of the abdomen. Hemoglobin is 8.5 mg at this time. The patient also has hypertension which is being closely monitored. Also multiple consultants are following the patient closely including GI. INR is still elevated at 2.4. PAST MEDICAL HISTORY: Reviewed. REVIEW OF SYSTEMS: CARDIOVASCULAR: No angina or palpitations. RESPIRATORY: As mentioned earlier. GI: No nausea. : No dysuria. NERVOUS SYSTEM: No numbness or weakness. Current medications are reviewed and include: 1. DuoNeb q.i.d. and p.r.n. 2. Zyloprim 200 mg p.o. b.i.d. 4. Lasix 40 mg daily. 5. Levaquin 500 mg IV daily. 6. Toprol XL 25 mg daily. 7. Mexiletine 150 mg every 8. 8. Nitrostat 0.4 sublingual p.r.n. 9. Zofran 4 mg every 6 hours p.r.n. 10. Protonix 40 mg IV daily. 11. IV fluids. 12. Aldactone 25 mg p.o. b.i.d. 13. Flomax 0.5 at bedtime. PHYSICAL EXAMINATION: GENERAL: The patient is alert, oriented x3. Pulse 77, blood pressure 93/56, respirations 20, temperature 98.4, pulse ox 100% on room air. HEENT: Conjunctivae pale. Oral mucosa dry. NECK: No distention. No lymph node enlargement. Veins are collapsed. CARDIOVASCULAR: S1 and S2 muffled. LUNGS: Breath sounds diminished at the bases. Few scattered rhonchi. No crackles. ABDOMEN: Soft, obese, nontender. EXTREMITIES: Legs no edema, no swelling. NERVOUS SYSTEM: Higher functions as mentioned. Moves all 4 limbs. No focal deficits. LYMPH: No lymph node enlargement in the neck, axillae, groin. SKIN: No rashes. LABS: WBC 9.3, hemoglobin is 8.5, INR is 2.4. ASSESSMENT: 1. Lower gastrointestinal bleeding with possible diverticular bleeding with acute blood loss anemia. 2. Hypotension as well as hypotensive shock secondary to acute blood loss anemia and GI bleed. 3. Increased WBC, possibly reactive. 4. Anemia, normocytic. 5. Coumadin monitoring. 6. History of chronic obstructive pulmonary disease. 7. History of deep venous thrombosis. 8. History of gastroesophageal reflux disease. 9. History of myocardial infarction. 10. History of sleep apnea. 11. History of degenerative joint disease. 12. History of CPAP. 13. History of automatic implantable cardioverter defibrillator. 14. History of cardiac catheterization and ablation. 15. History of cholecystectomy. 16. History of coronary artery disease and coronary artery bypass grafting and stent. 17. History of nicotine dependence. 18. Obesity, body mass index of 30.6. 19. FULL CODE. RECOMMENDATIONS/DISCUSSION: Continue with the current medications. Continue with monitoring and symptomatic treatment. Otherwise I would recommend monitoring hemoglobin closely. Transfuse periodically. GI consultation. Hold Coumadin. Monitor PT and INR closely. Further recommendations to follow. Prognosis guarded. MTDD
[2017-05-12] MEDS: TAMSULOSIN 0.4 MG CAP.ER.24H PO SCH (20:31)
[2017-05-12] MEDS ORDERED: MELOXICAM 7.5 MG TAB PO SCH (21:00)
[2017-05-12 22:16] LABS: Anisocytosis Slight; CH 26.2; CHCM 29.3; HCT 24.9 % (39.0-53.0); HDW 2.95; HGB 7.2 gm/dL (13.0-17.5); Hypochromasia Marked; MCH 25.9 pg (25.0-35.0); MCHC 28.9 g/dL (31.0-37.0); Mean Platelet Volume 9.5; RBC 2.78 m/uL (4.30-5.90); RDW 17.4 % (11.5-15.5); WBC 7.7 k/uL (3.8-10.6)
[2017-05-12 22:22] LABS: MCV 89.6 fL (80.0-100.0)
[2017-05-13] MEDS: MEXILETINE 150 MG CAP PO SCH ×4 (01:21→23:22)
[2017-05-13 05:13] LABS: Anisocytosis Slight; Hypochromasia Marked
[2017-05-13 05:15] LABS: Basophils % (A) 0 %; CH 25.2; CHCM 30.6; Eosinophils # (A) 0.3 k/uL (0-0.7); Eosinophils % (A) 4 %; HCT 22.2 % (39.0-53.0); HGB 7.2 gm/dL (13.0-17.5); INR 1.3 (<1.1); Luc # (Auto) 0.27; Luc % (Auto) 4; Lymphocytes # (A) 1.3 k/uL (1.0-4.8); Lymphocytes % (A) 17 %; MCH 26.6 pg (25.0-35.0); MCHC 32.2 g/dL (31.0-37.0); MCV 82.7 fL (80.0-100.0); Mean Platelet Volume 7.7; Monocytes # (A) 0.3 k/uL (0-1.0); Monocytes % (A) 4 %; Neutrophils # (A) 5.2 k/uL (1.3-7.7); Neutrophils % (A) 71 %; Prothrombin Time 12.5 sec (9.0-12.0); RBC 2.69 m/uL (4.30-5.90); RDW 16.2 % (11.5-15.5); WBC 7.4 k/uL (3.8-10.6); WBC (Perox) 7.71
[2017-05-13 05:18] LABS: Anion Gap 5 mmol/L; Blood Urea Nitrogen 12 mg/dL (9-20); Calcium 7.5 mg/dL (8.4-10.2); Carbon Dioxide 20 mmol/L (22-30); Chloride 114 mmol/L (98-107); Glucose 79 mg/dL (74-99); Non-African American GFR(MDRD) >60 (>60 ml/min/1.73 sqM); Potassium 4.2 mmol/L (3.5-5.1); Sodium 139 mmol/L (137-145)
[2017-05-13] MEDS: SYMBICORT 80-4.5 MCG INHALER INHALATION SCH ×2 (07:04→19:19)
[2017-05-13] MEDS: IPRATROPIUM-ALBUTEROL 3 ML NEB INHALATION SCH ×4 (07:04→19:19)
[2017-05-13] MEDS: SODIUM CHLORIDE 0.9% 1,000 ML IV SCH (08:40)
[2017-05-13] MEDS: ALLOPURINOL 100 MG TAB PO SCH ×2 (08:41→20:05)
[2017-05-13] MEDS: METOPROLOL SUCCINATE (ER) 25 MG TAB.ER.24H PO SCH ×2 (08:41→20:04)
[2017-05-13] MEDS: PANTOPRAZOLE 40 MG/10 ML VIAL IVP SCH (08:42)
[2017-05-13] MEDS: LEVOFLOXACIN 500MG-D5W PMX 500 MG in DEXTROSE/WATER 1 100ML.BAG IVPB SCH (08:42)
[2017-05-13] MEDS: FUROSEMIDE 40 MG TAB PO SCH ×2 (08:42→08:46)
[2017-05-13] MEDS: SPIRONOLACTONE 25 MG TAB PO SCH (08:47)
--- NOTE | 2017-05-13 09:31 | P.PN ---
Subjective Principal diagnosis: Gastrointestinal bleeding This is a very pleasant 66-year-old woman who follows with Dr. Russell in the [place] area. He has a past history of chronic obstructive pulmonary disease treated with Advair and pro-air, former smoker quit in 2012, sleep apnea does not utilize CPAP, hyperlipidemia, benign prosthetic hypertrophy, myocardial infarctions 2, ischemic cardiomyopathy with ejection fraction less than 20%, status post AICD placement, ablations, status post coronary bypass surgery. Has has a history of atrial fibrillation, PE/DVT, [place] filter placement he is anticoagulated with warfarin. He does have a history of diverticulosis diagnosed proximal a 5-6 years ago and then had an episode of bleeding most recently 1-1/2 years ago. 2 evenings ago he started having painless dark stools and presented to [place] for the same. A computed tomography scan of the abdomen did reveal evidence of diverticulosis without diverticulitis. There is a stable distal abdominal aortic aneurysm. Evidence of cholecystectomy. He was subsequently transferred here directly to the selective care unit. Once there he continued to have evidence of GI bleeding and hypotension and was subsequently transferred here to the intensive care unit. He is seen today in consultation. He is currently awake and alert in no acute distress. His hemoglobin has drifted from 10.9-9.2 currently. His initial INR was 2.8 currently 2.4 he did receive vitamin K. He does have complaints of vague abdominal pain otherwise no other complaints. No shortness of breath, cough or congestion. No chest pain palpitations lightheadedness or dizziness. His mean arterial pressure has remained 60-65. Not currently on any pressors. His 0.9 normal saline at 60 miles per hour. Maintaining O2 saturations in the 90s on room air. The patient is seen again today 05/13/2017 in follow-up in the intensive care unit. He remains awake and alert in no acute distress. He's had one dark tarry stool in the past 24 hours. He is maintaining hemoglobin at 7.2. He has not required any blood transfusions thus far. His INR has recovered currently at 1.2. Denies any abdominal discomfort. No shortness of breath, cough or congestion. He is hemodynamically stable. He did not require any pressor support. Maintaining O2 saturations in the 90s on room air. Objective - Vital Signs Vital signs: Vital Signs Temp 98.0 F 05/13/17 08:00 Pulse 78 05/13/17 09:00 Resp 19 05/13/17 09:00 BP 99/59 05/13/17 09:00 Pulse Ox 99 05/13/17 09:00 Intake & Output 05/12/17 05/13/17 05/13/17 18:59 06:59 18:59 Intake Total 1760 720 180 Output Total 900 1050 850 Balance 860 -330 -670 Weight 96.8 kg Intake: IV 1660 720 180 Sodium Chloride 0.9% 1, 1660 720 180 000 ml @ 60 mls/hr IV . [id number] MATEUS Rx#:[id number] Intake, IV Titration 100 Amount Magnesium Sulfate-D5w Pmx 100 1 gm In Dextrose/Water 1 100ml.bag @ 100 mls/hr IVPB Q1H MATEUS Rx#: [id number] Output: Urine 900 1050 850 Other: Voiding Method Urinal Urinal Urinal # Voids 1 1 1 # Bowel Movements 1 1 1 - Exam GENERAL EXAM: Alert, fairly comfortable in no apparent distress. HEAD: Normocephalic. EYES: Normal reaction of pupils, equal size. NOSE: Clear with pink turbinates. THROAT: There is crowding of the posterior pharynx. No erythema or exudates. NECK: No masses, no JVD. CHEST: No chest wall deformity. LUNGS: Equal air entry with no crackles, wheeze, rhonchi or dullness. CVS: S1 and S2 normal with an audible murmur, irregular rhythm. ABDOMEN: No hepatosplenomegaly, normal bowel sounds, no guarding or rigidity. SPINE: No scoliosis or deformity SKIN: No rashes CENTRAL NERVOUS SYSTEM: No focal deficits, tone is normal in all 4 extremities. Extremities: There is no significant peripheral edema. No clubbing, no cyanosis. Peripheral pulses are intact. - Labs CBC & Chem 7: 05/13/17 04:22 05/13/17 04:22 Labs: Abnormal Lab Results - Last 24 Hours (Table) 05/12/17 05/12/17 05/12/17 Range/Units 10:03 16:20 22:06 RBC 3.20 L 2.81 L 2.78 L (4.30-5.90) m/uL Hgb 8.5 L 7.8 L 7.2 L (13.0-17.5) gm/dL Hct 27.5 L 23.7 L 24.9 L (39.0-53.0) % MCHC 28.9 L (31.0-37.0) g/dL RDW 16.3 H 16.1 H 17.4 H (11.5-15.5) % PT (9.0-12.0) sec Chloride (98-107) mmol/L Carbon Dioxide (22-30) mmol/L Calcium (8.4-10.2) mg/dL 05/13/17 05/13/17 05/13/17 Range/Units 04:22 04:22 04:22 RBC 2.69 L (4.30-5.90) m/uL Hgb 7.2 L (13.0-17.5) gm/dL Hct 22.2 L (39.0-53.0) % MCHC (31.0-37.0) g/dL RDW 16.2 H (11.5-15.5) % PT 12.5 H (9.0-12.0) sec Chloride 114 H (98-107) mmol/L Carbon Dioxide 20 L (22-30) mmol/L Calcium 7.5 L (8.4-10.2) mg/dL Assessment and Plan Plan: Impression: #1 Acute gastrointestinal bleeding secondary to diverticulosis. Current hemoglobin 7.2. No transfusions required as far. #2 Coagulopathy secondary to warfarin, did receive vitamin K 2 current INR 1.2. Levaquin discontinued. #3 Coronary artery disease status post coronary artery bypass grafting in 2012, previous stent placements 3. #4 Atrial fibrillation status post cardioversions and ablations. #5 Severe ischemic cardiomyopathy with an ejection fraction less than 20%, status post AICD. #6 Hyperlipidemia. #7 Chronic obstructive pulmonary, currently inactive and stable. #8 History of chronic tobacco dependence quit in 2012. #9 Previous history of diverticulosis proximal a 5-6 years ago, recurrent bleeding approximately 1-1/2 years ago. Plan: The patient was seen and evaluated by Dr. Spnan. The patient's labs were reviewed. He is currently stable from the pulmonary and critical care standpoint. We will await GI services evaluation today. The plan is for upper and lower endoscopies either today or tomorrow. We'll continue to follow. He could be transferred out of the intensive care unit later today if he remains stable.
[2017-05-13] MEDS ORDERED: BISACODYL 5 MG TABLET.DR PO STA (10:51)
--- NOTE | 2017-05-13 10:54 | P.PN ---
Subjective Principal diagnosis: gi bleed 4-5 small burgundy-colored bowel movements yesterday none through the night. Feels well. Hemoglobin 7.2. INR 1.3. Denies abdominal pain. Objective - Vital Signs Vital signs: Vital Signs Temp 98.0 F 05/13/17 08:00 Pulse 78 05/13/17 09:00 Resp 19 05/13/17 09:00 BP 99/59 05/13/17 09:00 Pulse Ox 99 05/13/17 09:00 Intake & Output 05/12/17 05/13/17 05/13/17 18:59 06:59 18:59 Intake Total 1760 720 180 Output Total 900 1050 850 Balance 860 330 670 Weight 96.8 kg Intake: IV 1660 720 180 Sodium Chloride 0.9% 1, 1660 720 180 000 ml @ 60 mls/hr IV . [id number] [facility] Rx#:[id number] Intake, IV Titration 100 Amount Magnesium Sulfate-D5w Pmx 100 1 gm In Dextrose/Water 1 100ml.bag @ 100 mls/hr IVPB Q1H [facility] Rx#: [id number] Output: Urine 900 1050 850 Other: Voiding Method Urinal Urinal Urinal # Voids 1 1 1 # Bowel Movements 1 1 1 - Exam General appearance: The patient is alert, oriented, in no acute distress. HET: Head is normocephalic and atraumatic. Pupils are equal and reactive. Oropharynx is clear without lesions. Neck: Supple without lymphadenopathy. Trachea midline. Heart: S1 S2. Lungs: No crackles or wheezes are heard. Abdomen: Soft, nontender, nondistended with bowel sounds. No peritoneal signs. No palpable organomegaly or masses. Extremities: Normal skin color and turgor. No cyanosis, rash, ulceration, clubbing, or edema. Radial and pedal pulses are 2/4 bilaterally. Neurological: No focal deficits. Strength and sensation are grossly intact. - Labs CBC & Chem 7: 05/13/17 04:22 05/13/17 04:22 Labs: Abnormal Lab Results - Last 24 Hours (Table) 05/12/17 05/12/17 05/13/17 Range/Units 16:20 22:06 04:22 RBC 2.81 L 2.78 L 2.69 L (4.30-5.90) m/uL Hgb 7.8 L 7.2 L 7.2 L (13.0-17.5) gm/dL Hct 23.7 L 24.9 L 22.2 L (39.0-53.0) % MCHC 28.9 L (31.0-37.0) g/dL RDW 16.1 H 17.4 H 16.2 H (11.5-15.5) % PT (9.0-12.0) sec Chloride (98-107) mmol/L Carbon Dioxide (22-30) mmol/L Calcium (8.4-10.2) mg/dL 05/13/17 05/13/17 Range/Units 04:22 04:22 RBC (4.30-5.90) m/uL Hgb (13.0-17.5) gm/dL Hct (39.0-53.0) % MCHC (31.0-37.0) g/dL RDW (11.5-15.5) % PT 12.5 H (9.0-12.0) sec Chloride 114 H (98-107) mmol/L Carbon Dioxide 20 L (22-30) mmol/L Calcium 7.5 L (8.4-10.2) mg/dL Assessment and Plan (1) Acute GI bleeding Narrative/Plan: 66-year-old gentleman with a history of significant cardiac history including atrial fibrillation with Coumadin monitoring, PE DVT, CAD ID with AICD CABG presents with acute lower GI bleed burgundy-colored bowel movements with abdominal pain and hypotension with history of underlying diverticulosis most likely exacerbated by Coumadin-induced coagulopathy. Suspect bleeding could be related to diverticular bleeding however ischemic colitis needs to be kept within the differential. Upper GI pathology cannot be entirely excluded. Status: Acute (2) Acute blood loss anemia Status: Acute (3) Warfarin-induced coagulopathy Status: Acute (4) Symptomatic anemia Status: Acute Plan: 1. EGD/colonoscopy tomorrow. 2. GI prophylaxis. Monitor CBC. Continue to hold anticoagulation. 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 The patient has indicated understanding and acceptance of the risks and procedures discussed. Assessment and plan of care discussed with Dr. Reynolds
--- NOTE | 2017-05-13 13:53 | PN ---
Mr. Dinh is a 66-year-old male with a history of atrial fibrillation, history of ischemic cardiomyopathy, status post ICD implant, a prior episode of ventricular tachycardia who presented with symptoms of GI bleeding. He is feeling better at this time. His breathing is stable. He denies any chest pain. He has no dizziness. No palpitations. His ventricular response is under good control. His blood pressure has been stable. He had an echo with ejection fraction of 25% to 30% with mild mitral and tricuspid regurgitation. He continues to be on the furosemide 40 mg daily, metoprolol succinate 25 mg daily, mexiletine 150 mg q.8 hours. PHYSICAL EXAMINATION: His blood pressure is running in the low 100s with the heart rate in the 70s. LUNGS: Clear. HEART: Irregular, irregular. S1, S2, no S3, no rub. ABDOMEN: Soft, nontender. EXTREMITIES: No edema. Lab data revealed BUN and creatinine 12 and 0.98. Potassium 4.2. Hemoglobin of 7.2. His INR is down to 1.3. IMPRESSION: 1. Gastrointestinal bleeding, workup in progress. 2. Severe ischemic cardiomyopathy, status post ICD implant. 3. Chronic atrial fibrillation. 4. History of hyperlipidemia. RECOMMENDATIONS: From the cardiac standpoint, we will await the input of the GI service regarding the source of his bleeding. I will increase the dose of his Toprol XL to 25 mg twice a day. I will hold on the Aldactone at this time, Entresto continues to be on hold because of low blood pressure. Patient will need to go back on anticoagulation, but we can hold on antiplatelet treatment.
[2017-05-13] MEDS ORDERED: PEG 3350-NA SULF,BICARB,CL/KCL 4,000 ML BOTTLE PO ONE (15:00)
--- NOTE | 2017-05-13 17:34 | PN ---
DATE OF SERVICE: 05/13/2017 This 66-year-old gentleman who was admitted with lower gastrointestinal bleeding, had possibly diverticular bleed. The patient is noted to have hemoglobin 7.2. The patient also had relative hypotensive, 1 L transfusion was arranged for symptomatic anemia at this time. Gastroenterology is planning endoscopies both upper and lower. Past medical history reviewed. REVIEW OF SYSTEMS: CARDIOVASCULAR: No angina or palpitations. RESPIRATORY: As mentioned earlier. GASTROINTESTINAL: The patient complaining of mild lower abdominal discomfort which is slightly improving. : No dysuria. Current medications are: 1. DuoNeb q.i.d. and p.r.n. 2. 200 mg p.o. b.i.d. 3. Symbicort 80/4.5, 2 puffs b.i.d. 4. Lasix 40 mg daily. 5. Levaquin 500 mg daily. 6. Toprol XL 25 mg p.o. b.i.d. 8. Magnesium. 9. Nitrostat. 10. Zofran. 11. Protonix. 12. Aldactone. 13. Flomax. PHYSICAL EXAM: Patient is alert and oriented times three. Pulse is 77, blood pressure 120/50, respiratory rate 20, temperature 97.2, pulse ox is 99% on BiPAP. HEENT: Conjunctivae pale. Oral mucosa moist. NECK: No jugular venous distention. No carotid bruit. No lymph node enlargement. CARDIOVASCULAR: S1, S2 muffled. RESPIRATORY: Breath sounds diminished at the bases. A few scattered rhonchi. ABDOMEN: Soft, nontender. LEGS: No edema. No swelling. CENTRAL NERVOUS SYSTEM: Higher functions as mentioned earlier. Moves all four limbs. LYMPHATICS: No lymph nodes palpable in the neck, axillae or groin. SKIN: No ulcer, rash or bleeding. Labs at this time shows hemoglobin 7.2, INR is 1.3. ASSESSMENT: 1. Lower gastrointestinal bleeding with possible acute diverticular bleeding with acute blood loss anemia, symptomatic. 2. Relative hypotension as well as hypertension shock secondary to blood loss anemia and gastrointestinal bleed. 3. Increased WBC, possibly reactive. 4. Anemia, normocytic. 5. Coumadin monitoring. 6. History of chronic obstructive pulmonary disease. 7. History of deep venous thrombosis. 8. History of gastroesophageal reflux disease. 9. History of myocardial infarction. 10. Sleep apnea, CPAP. 11. History of degenerative joint disease . 12. History of CPAP. 13. History of automatic implantable cardioverter defibrillator. 14. History of cardiac catheterization and ablation. 15. History of cholecystectomy. 16. Coronary artery disease, coronary artery bypass grafting, stent. 17. History of nicotine dependence. 18. Obesity, body mass index 30.6. 19. 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 20. FULL CODE. RECOMMENDATIONS AND DISCUSSION: Recommend to continue current medications. Continue with monitoring, symptomatic treatment. Otherwise, at this time, I recommend to continue with current medications, one unit of transfusion as mentioned earlier. Otherwise closely monitor. Endoscopies by gastroenterology. Prognosis guarded. Further recommendations to follow. The patient has a biventricular automatic implantable cardioverter defibrillator. Once gastrointestinal bleed stabilizes recommend start Coumadin per cardiology. Otherwise, currently prognosis guarded. Further recommendations to follow. MTDD
[2017-05-13 19:45] LABS: Anisocytosis Slight; CH 26.2; HCT 27.2 % (39.0-53.0); HDW 3.17; HGB 8.5 gm/dL (13.0-17.5); Hypochromasia Marked; MCH 27.1 pg (25.0-35.0); MCHC 31.1 g/dL (31.0-37.0); MCV 87.2 fL (80.0-100.0); Mean Platelet Volume 7.8; RBC 3.12 m/uL (4.30-5.90); RDW 16.3 % (11.5-15.5); WBC 8.8 k/uL (3.8-10.6)
[2017-05-13] MEDS: TAMSULOSIN 0.4 MG CAP.ER.24H PO SCH (20:04)
[2017-05-14 04:51] LABS: Anisocytosis Slight; Basophils % (A) 1 %; CH 26.3; CHCM 30.6; Eosinophils # (A) 0.3 k/uL (0-0.7); Eosinophils % (A) 3 %; HCT 23.8 % (39.0-53.0); HDW 3.27; HGB 7.3 gm/dL (13.0-17.5); Hypochromasia Marked; Luc # (Auto) 0.23; Luc % (Auto) 3; Lymphocytes # (A) 0.9 k/uL (1.0-4.8); Lymphocytes % (A) 12 %; MCH 26.2 pg (25.0-35.0); MCHC 30.5 g/dL (31.0-37.0); MCV 85.9 fL (80.0-100.0); Mean Platelet Volume 7.5; Monocytes # (A) 0.4 k/uL (0-1.0); Monocytes % (A) 5 %; Neutrophils % (A) 77 %; RBC 2.77 m/uL (4.30-5.90); RDW 16.6 % (11.5-15.5); WBC 7.8 k/uL (3.8-10.6); WBC (Perox) 7.67
[2017-05-14 05:01] LABS: Anion Gap 7 mmol/L; Blood Urea Nitrogen 7 mg/dL (9-20); Calcium 7.9 mg/dL (8.4-10.2); Carbon Dioxide 20 mmol/L (22-30); Chloride 110 mmol/L (98-107); Glucose 83 mg/dL (74-99); Magnesium 1.8 mg/dL (1.6-2.3); Non-African American GFR(MDRD) >60 (>60 ml/min/1.73 sqM); Phosphorous 2.3 mg/dL (2.5-4.5); Potassium 3.9 mmol/L (3.5-5.1); Sodium 137 mmol/L (137-145)
[2017-05-14 05:12] LABS: INR 1.2 (<1.1); Prothrombin Time 11.8 sec (9.0-12.0)
[2017-05-14] MEDS ORDERED: Potassium Replacement Protocol 1 EACH MISC MISCELLANE PRN (06:22)
[2017-05-14] MEDS: SODIUM CHLORIDE 0.9% 1,000 ML IV SCH (06:53)
[2017-05-14] MEDS: POTASSIUM CHLORIDE 10 MEQ, LIDOCAINE 2% INJ 10 MG in SODIUM CHLORIDE 0.9% 100 ML IV SCH ×2 (07:03→08:06)
[2017-05-14] MEDS: MAGNESIUM SULFATE-D5W PMX 1 GM in DEXTROSE/WATER 1 100ML.BAG IVPB SCH ×2 (07:03→09:15)
[2017-05-14] MEDS: SYMBICORT 80-4.5 MCG INHALER INHALATION SCH ×2 (07:46→18:49)
[2017-05-14] MEDS: IPRATROPIUM-ALBUTEROL 3 ML NEB INHALATION SCH ×4 (07:47→18:48)
[2017-05-14] MEDS: LEVOFLOXACIN 500MG-D5W PMX 500 MG in DEXTROSE/WATER 1 100ML.BAG IVPB SCH (08:00)
[2017-05-14] MEDS: PANTOPRAZOLE 40 MG/10 ML VIAL IVP SCH (08:00)
[2017-05-14] MEDS: MEXILETINE 150 MG CAP PO SCH ×3 (08:05→22:54)
[2017-05-14] MEDS ORDERED: LIDOCAINE 1% INJ 10MG/ML (20 ML MDV) ONE (10:20)
[2017-05-14] MEDS ORDERED: PROPOFOL 10 MG/ML 20 ML VIAL IV ONE (10:20)
[2017-05-14] MEDS ORDERED: ePHEDrine 50 MG/ML 1 ML AMP ONE (10:20)
--- NOTE | 2017-05-14 10:22 | P.PN ---
Subjective Principal diagnosis: Gastrointestinal bleeding This is a very pleasant 66-year-old woman who follows with Dr. Russell in the [place] area. He has a past history of chronic obstructive pulmonary disease treated with Advair and pro-air, former smoker quit in 2012, sleep apnea does not utilize CPAP, hyperlipidemia, benign prosthetic hypertrophy, myocardial infarctions 2, ischemic cardiomyopathy with ejection fraction less than 20%, status post AICD placement, ablations, status post coronary bypass surgery. Has has a history of atrial fibrillation, PE/DVT, Christine filter placement he is anticoagulated with warfarin. He does have a history of diverticulosis diagnosed proximal a 5-6 years ago and then had an episode of bleeding most recently 1-1/2 years ago. 2 evenings ago he started having painless dark stools and presented to [place] for the same. A computed tomography scan of the abdomen did reveal evidence of diverticulosis without diverticulitis. There is a stable distal abdominal aortic aneurysm. Evidence of cholecystectomy. He was subsequently transferred here directly to the selective care unit. Once there he continued to have evidence of GI bleeding and hypotension and was subsequently transferred here to the intensive care unit. He is seen today in consultation. He is currently awake and alert in no acute distress. His hemoglobin has drifted from 10.9-9.2 currently. His initial INR was 2.8 currently 2.4 he did receive vitamin K. He does have complaints of vague abdominal pain otherwise no other complaints. No shortness of breath, cough or congestion. No chest pain palpitations lightheadedness or dizziness. His mean arterial pressure has remained 60-65. Not currently on any pressors. His 0.9 normal saline at 60 miles per hour. Maintaining O2 saturations in the 90s on room air. The patient is seen again today 05/13/2017 in follow-up in the intensive care unit. He remains awake and alert in no acute distress. He's had one dark tarry stool in the past 24 hours. He is maintaining hemoglobin at 7.2. He has not required any blood transfusions thus far. His INR has recovered currently at 1.2. Denies any abdominal discomfort. No shortness of breath, cough or congestion. He is hemodynamically stable. He did not require any pressor support. Maintaining O2 saturations in the 90s on room air. The patient is seen again today 05/14/2017 in follow-up in the intensive care unit. He is awake and alert in no acute distress. He's not had any further bleeding. The plan is for EGD/colonoscopy this morning. His current hemoglobin is 7.3 he's had 1 unit of packed red blood cells in total since admission. He denies any shortness of breath, cough or congestion. No chest pain palpitations lightheadedness or dizziness. No abdominal discomfort. Objective - Vital Signs Vital signs: Vital Signs Temp 98.3 F 05/14/17 08:00 Pulse 66 05/14/17 10:00 Resp 19 05/14/17 10:00 BP 96/60 05/14/17 10:00 Pulse Ox 100 05/14/17 10:00 Intake & Output 05/13/17 05/14/17 05/14/17 18:59 06:59 18:59 Intake Total 1340 1920 520 Output Total 1800 2002 300 Balance -460 -82 220 Weight 100.6 kg Intake: IV 1030 720 520 Magnesium Sulfate-D5w Pmx 200 1 gm In Dextrose/Water 1 100ml.bag @ 100 mls/hr IVPB Q1H [facility] Rx#: [id number] PRBCs 310 60 Potassium Chloride 10 meq 200 Lidocaine 2% Inj 10 mg In Sodium Chloride 0.9% 100 ml @ 100 mls/hr IV Q1HR [facility] Rx#:[id number] Sodium Chloride 0.9% 1, 720 660 120 000 ml @ 60 mls/hr IV . [id number] [facility] Rx#:[id number] Oral 1200 Blood Product 310 Rc As-1 Unit 310 [id number] Output: Urine 1800 2000 300 Stool 2 Other: Voiding Method Urinal Urinal Urinal # Voids 1 1 # Bowel Movements 1 1 1 - Exam GENERAL EXAM: Alert, fairly comfortable in no apparent distress. HEAD: Normocephalic. EYES: Normal reaction of pupils, equal size. NOSE: Clear with pink turbinates. THROAT: There is crowding of the posterior pharynx. No erythema or exudates. NECK: No masses, no JVD. CHEST: No chest wall deformity. LUNGS: Equal air entry with no crackles, wheeze, rhonchi or dullness. CVS: S1 and S2 normal with an audible murmur, irregular rhythm. ABDOMEN: No hepatosplenomegaly, normal bowel sounds, no guarding or rigidity. SPINE: No scoliosis or deformity SKIN: No rashes CENTRAL NERVOUS SYSTEM: No focal deficits, tone is normal in all 4 extremities. Extremities: There is no significant peripheral edema. No clubbing, no cyanosis. Peripheral pulses are intact. - Labs CBC & Chem 7: 05/14/17 04:09 05/14/17 04:09 Labs: Abnormal Lab Results - Last 24 Hours (Table) 05/12/17 05/13/17 05/14/17 Range/Units 05:19 19:26 04:09 RBC 3.12 L (4.30-5.90) m/uL Hgb 8.5 L (13.0-17.5) gm/dL Hct 27.2 L (39.0-53.0) % MCHC (31.0-37.0) g/dL RDW 16.3 H (11.5-15.5) % Lymphocytes # (1.0-4.8) k/uL Chloride 110 H (98-107) mmol/L Carbon Dioxide 20 L (22-30) mmol/L BUN 7 L (9-20) mg/dL Calcium 7.9 L (8.4-10.2) mg/dL Phosphorus 2.3 L (2.5-4.5) mg/dL Crossmatch See Detail 05/14/17 Range/Units 04:09 RBC 2.77 L (4.30-5.90) m/uL Hgb 7.3 L (13.0-17.5) gm/dL Hct 23.8 L (39.0-53.0) % MCHC 30.5 L (31.0-37.0) g/dL RDW 16.6 H (11.5-15.5) % Lymphocytes # 0.9 L (1.0-4.8) k/uL Chloride (98-107) mmol/L Carbon Dioxide (22-30) mmol/L BUN (9-20) mg/dL Calcium (8.4-10.2) mg/dL Phosphorus (2.5-4.5) mg/dL Crossmatch Assessment and Plan Plan: Impression: #1 Acute gastrointestinal bleeding secondary to diverticulosis. Current hemoglobin 7.3. 1 unit of packed red blood cells this admission. #2 Coagulopathy secondary to warfarin, did receive vitamin K 2 current INR 1.2. #3 Coronary artery disease status post coronary artery bypass grafting in 2013, previous stent placements 3. #4 Atrial fibrillation status post cardioversions and ablations. #5 Severe ischemic cardiomyopathy with an ejection fraction less than 20%, status post AICD. #6 Hyperlipidemia. #7 Chronic obstructive pulmonary, currently inactive and stable. #8 History of chronic tobacco dependence quit in 2013. #9 Previous history of diverticulosis proximal a 5-6 years ago, recurrent bleeding approximately 1-1/2 years ago. Plan: The patient was seen and evaluated by Dr. Spann. The patient's labs were reviewed. He is currently stable from the pulmonary and critical care standpoint. The plan is for upper and lower endoscopies today. He will be transferred out of the intensive care unit following his procedures. We'll continue to monitor his hemoglobin. We'll continue to follow.
[2017-05-14] MEDS ORDERED: IV FLUID CONTINUATION 1,000 ML IV ONE (10:23)
--- NOTE | 2017-05-14 10:40 | P.PCN ---
Date of Procedure: 05/14/17 Preoperative Diagnosis: Postoperative Diagnosis: Procedure(s) Performed: Brief history: Patient is a pleasant 66-year-old white male, admitted to the hospital with acute GI bleed. He had multiple episodes of burgundy-colored stools associated with cramping left lower quadrant abdominal pain for the last 2 days' duration. He is hence scheduled for an upper endoscopy as well as colonoscopy as a part of evaluation of acute GI bleed. Procedure performed: Esophagogastroduodenoscopy with biopsy Colonoscopy Preoperative diagnosis: Acute GI bleed Abdominal pain Anesthesia: MAC Procedure: After informed consent was obtained from the patient was brought into the endoscopy unit and IV sedation was administered by anesthesia under continuous monitoring. Initially upper endoscopy was done. The Olympus GF 160 video endoscope was inserted inserted into the mouth and esophagus intubated without any difficulty and was gradually advanced into the stomach and duodenum and carefully examined. The bulb and second part of the duodenum appeared normal. The scope was then withdrawn into the stomach adequately insufflated with air and upon careful examination the antrum had scattered erosions but no active bleeding and biopsies were done from this area. The body, cardia and fundus appeared normal. The scope was then withdrawn into the esophagus. The GE junction was located at 40 cm to the incisors. It appeared regular with no erythema erosions or ulcerations. Rest of the esophagus appeared normal. Patient tolerated the procedure well. At this time the patient continued to remain sedation. Initial digital rectal examination was normal. Olympus CF 160 video colonoscope was then inserted into the rectum and gradually advanced to the cecum without any difficulty. Careful examination was performed as the scope was gradually being withdrawn. The prep was excellent. The cecum, ascending colon, transverse colon, descending colon, sigmoid colon and rectum appeared normal. moderate ascites diverticulosis seen. No active bleeding noted. Retroflexion was performed in the rectum and small internal hemorrhoidswere noted. Patient tolerated the procedure well. Impression: 1. Upper endoscopy revealed antral erosive gastritis but no evidence of upper GI bleed 2. Colonoscopy revealed moderate left-sided diverticulosis and small internal hemorrhoids. No active bleeding seen. Recommendations: Findings of this examination were discussed with the patient . Most likely her recent episode of bleed was diverticular in nature which has spontaneously resolved. He'll be started on a soft diet. Implants: Indications for Procedure: Operative Findings: Description of Procedure:
[2017-05-14 11:07] VITALS: BMI 31.8
[2017-05-14] MEDS: METOPROLOL SUCCINATE (ER) 25 MG TAB.ER.24H PO SCH ×2 (11:27→20:09)
[2017-05-14] MEDS: ALLOPURINOL 100 MG TAB PO SCH ×2 (11:27→20:08)
--- NOTE | 2017-05-14 13:20 | PN ---
This patient has a history of cardiomyopathy. Patient came with gastrointestinal bleeding and underwent upper GI and lower GI endoscopy. No significant abnormality was detected. Patient remained stable. Denies any chest pain. Denies any shortness of breath. Heart rate is 77 per minute, blood pressure is 97/59 mmHg. First and second heart sounds are normal. Lungs are clinically clear to auscultation and percussion. RECOMMENDATION: Continue current medications. Patient's Entresto is on hold because of the low blood pressure. After the discharge from the patient Entresto can be restarted when his blood pressure is stabilized.
--- NOTE | 2017-05-14 14:33 | XR ---
EXAMINATION TYPE: XR chest 1V portable DATE OF EXAM: 05/14/2017 History chest pain and short of breath. Comparison 03/10/2016. Technique single view. FINDINGS: Heart is enlarged. There is no gross heart failure. There is coarsening of interstitial markings. The re is a left axillary pacemaker with the lead tips in the right ventricle. I see no pleural effusion. There are chest leads. CONCLUSION: Cardiomegaly. No heart failure. Pulmonary fibrotic changes. No significant change compared to old exa m.
--- NOTE | 2017-05-14 15:41 | PN ---
DATE OF SERVICE: 05/14/2017 This 66 -year-old gentleman admitted with lower gastrointestinal bleeding and acute blood loss anemia, received one transfusion. Hemoglobin went up to 8.5 from 7.2 but today again it is 7.3. No active bleeding reported. The patient also underwent EGD and colonoscopy by Dr. Reynolds. EGD showed antral erosive gastritis and colonoscopy showed diverticulosis without any active stigmata of bleeding, however, Dr. Reynolds believes the bleeding could be related to diverticular disease. Past medical history reviewed. REVIEW OF SYSTEMS: CARDIOVASCULAR: No angina or palpitations. RESPIRATORY SYSTEM: As mentioned earlier. GASTROINTESTINAL: As mentioned earlier. : No dysuria. Nervous system: As mentioned earlier. Current medications are reviewed and include: 1. Duoneb q.i.d. and p.r.n. 2. Zyloprim 200 mg p.o. b.i.d. 3. Symbicort 80/4.5, 2 puffs b.i.d. 4. Lasix 40 mg daily. 5. Levaquin 500 mg daily. 6. Toprol XL 25 mg daily. 7. Mexiletine 150 q8h. 8. Nitrostat 0.4 sublingual p.r.n. 9. Zofran 4 mg IV q.6. 10. Protonix 40 mg daily. 11. Aldactone 25 milligrams. 12. Flomax 0.4 at bedtime. PHYSICAL EXAMINATION: Patient is alert and oriented x3. Pulse 75. Blood pressure 97/59. Respiratory rate 16. Temperature normal. Pulse ox 97% on room air. HEENT: Conjunctivae normal. Oral mucosa moist. NECK: No JVD. No carotid bruit. No lymph node enlargement. CARDIOVASCULAR: S1, S2 muffled. No S3, no S4. RESPIRATORY: Breath sounds diminished at the bases. A few scattered rhonchi, no crackles. ABDOMEN: Soft, obese, nontender. No mass palpable. No guarding or rigidity. LEGS: No edema. No swelling. CENTRAL NERVOUS SYSTEM: Higher functions as mentioned earlier. Moves all four limbs. No focal deficits. LYMPHATICS: No lymph nodes palpable in the neck, axillae or groin. SKIN: No ulcer, rash or bleeding. LABS: Hemoglobin 7.3. Otherwise, CO2 is 20 and is 2.3. ASSESSMENT: 1. Lower gastrointestinal bleeding, possible acute diverticular bleeding with acute blood loss anemia, symptomatic. 2. Status post EGD and colonoscopy showing antral erosive gastritis and significant diverticulosis without any stigmata of any recent gastrointestinal bleed. 3. Relative hypotension as well as hypotensive shock secondary to acute blood loss anemia and gastrointestinal bleed, present on admission. 4. Increased WBC, possibly reactive. 5. Anemia, normocytic. 6. Coumadin monitoring. 7. History of chronic obstructive pulmonary disease. 8. History of deep venous thrombosis. 9. History of gastroesophageal reflux disease. 10. History of myocardial infarction. 11. History of sleep apnea, CPAP. 12. History of degenerative joint disease. 13. History of automatic implantable cardioverter defibrillator. 14. History of cardiac catheterization ablation. 15. History of cholecystectomy. 16. History of coronary artery disease, coronary artery bypass grafting and stent. 17. History of nicotine dependence. 18. Obesity, body mass index 30.6. 19. 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 20. FULL CODE. RECOMMENDATIONS AND DISCUSSION: In this 66 -year-old gentleman who presented with multiple complex medical issues. We will continue the current medications, continue with symptomatic treatment. Avoid Coumadin for now. Monitor hemoglobin closely which has dropped to 7.3. If it drops further or the patient is symptomatic we will recommend additional transfusion as well. Prognosis guarded. Further recommendations to follow. Portable chest was also being recommended to assess fluid status at this time. [facility]
[2017-05-14] MEDS: FUROSEMIDE 40 MG TAB PO SCH (15:58)
[2017-05-14] MEDS: SPIRONOLACTONE 25 MG TAB PO SCH (15:59)
[2017-05-14 16:06] LABS: Anisocytosis Slight; Basophils % (A) 1 %; CH 26.2; CHCM 30.2; Eosinophils # (A) 0.2 k/uL (0-0.7); Eosinophils % (A) 3 %; HCT 25.8 % (39.0-53.0); HDW 3.23; HGB 7.8 gm/dL (13.0-17.5); Hypochromasia Marked; Luc # (Auto) 0.32; Luc % (Auto) 4; Lymphocytes # (A) 0.8 k/uL (1.0-4.8); Lymphocytes % (A) 10 %; MCH 26.3 pg (25.0-35.0); MCHC 30.3 g/dL (31.0-37.0); Mean Platelet Volume 7.5; Monocytes # (A) 0.4 k/uL (0-1.0); Monocytes % (A) 6 %; Neutrophils # (A) 5.9 k/uL (1.3-7.7); Neutrophils % (A) 77 %; RBC 2.96 m/uL (4.30-5.90); RDW 16.7 % (11.5-15.5); WBC 7.7 k/uL (3.8-10.6); WBC (Perox) 8.06
[2017-05-14] MEDS: TAMSULOSIN 0.4 MG CAP.ER.24H PO SCH (20:09)
[2017-05-14 21:48] LABS: Anisocytosis Slight; Basophils % (A) 0 %; CH 26.4; CHCM 30.7; Eosinophils # (A) 0.3 k/uL (0-0.7); Eosinophils % (A) 3 %; HCT 25.9 % (39.0-53.0); HDW 3.21; HGB 7.9 gm/dL (13.0-17.5); Hypochromasia Marked; Luc % (Auto) 3; Lymphocytes # (A) 1.1 k/uL (1.0-4.8); Lymphocytes % (A) 10 %; MCH 26.2 pg (25.0-35.0); MCHC 30.3 g/dL (31.0-37.0); MCV 86.3 fL (80.0-100.0); Mean Platelet Volume 8.4; Monocytes # (A) 0.5 k/uL (0-1.0); Monocytes % (A) 5 %; Neutrophils # (A) 8.3 k/uL (1.3-7.7); Neutrophils % (A) 79 %; WBC 10.4 k/uL (3.8-10.6); WBC (Perox) 10.48
[2017-05-15 04:39] LABS: Anisocytosis Slight; Basophils % (A) 0 %; CH 26.7; CHCM 31.2; Eosinophils # (A) 0.2 k/uL (0-0.7); Eosinophils % (A) 3 %; HCT 25.9 % (39.0-53.0); HDW 3.18; Hypochromasia Moderate; Luc # (Auto) 0.31; Luc % (Auto) 4; Lymphocytes % (A) 11 %; MCH 26.4 pg (25.0-35.0); MCHC 30.7 g/dL (31.0-37.0); MCV 85.9 fL (80.0-100.0); Mean Platelet Volume 7.7; Monocytes # (A) 0.6 k/uL (0-1.0); Monocytes % (A) 6 %; Neutrophils # (A) 6.8 k/uL (1.3-7.7); Neutrophils % (A) 77 %; RBC 3.02 m/uL (4.30-5.90); RDW 17.2 % (11.5-15.5); WBC 8.9 k/uL (3.8-10.6); WBC (Perox) 9.46
[2017-05-15 04:43] LABS: INR 1.2 (<1.1); Prothrombin Time 11.6 sec (9.0-12.0)
[2017-05-15 04:45] LABS: Anion Gap 8 mmol/L; Blood Urea Nitrogen 8 mg/dL (9-20); Calcium 8.4 mg/dL (8.4-10.2); Carbon Dioxide 23 mmol/L (22-30); Chloride 105 mmol/L (98-107); Glucose 98 mg/dL (74-99); Magnesium 1.8 mg/dL (1.6-2.3); Non-African American GFR(MDRD) >60 (>60 ml/min/1.73 sqM); Phosphorous 2.7 mg/dL (2.5-4.5); Potassium 3.9 mmol/L (3.5-5.1); Sodium 136 mmol/L (137-145)
[2017-05-15 08:10] VITALS: RESP 16; TEMP 98.7
[2017-05-15] MEDS: IPRATROPIUM-ALBUTEROL 3 ML NEB INHALATION SCH ×2 (08:36→11:00)
[2017-05-15] MEDS: SYMBICORT 80-4.5 MCG INHALER INHALATION SCH (08:36)
[2017-05-15] MEDS: ALLOPURINOL 100 MG TAB PO SCH (08:38)
[2017-05-15] MEDS: MEXILETINE 150 MG CAP PO SCH ×2 (08:38→16:44)
[2017-05-15] MEDS: FUROSEMIDE 40 MG TAB PO SCH (08:38)
[2017-05-15] MEDS: LEVOFLOXACIN 500MG-D5W PMX 500 MG in DEXTROSE/WATER 1 100ML.BAG IVPB SCH (08:39)
[2017-05-15] MEDS: SPIRONOLACTONE 25 MG TAB PO SCH (08:39)
[2017-05-15] MEDS: METOPROLOL SUCCINATE (ER) 25 MG TAB.ER.24H PO SCH (08:39)
[2017-05-15] MEDS: PANTOPRAZOLE 40 MG/10 ML VIAL IVP SCH (08:39)
[2017-05-15] MEDS ORDERED: MEXILETINE 150 MG CAP ONE (09:00)
[2017-05-15] MEDS ORDERED: FUROSEMIDE 40 MG TAB ONE (09:00)
[2017-05-15] MEDS ORDERED: SPIRONOLACTONE 25 MG TAB ONE (09:00)
[2017-05-15] MEDS ORDERED: ALLOPURINOL 100 MG TAB ONE (09:00)
[2017-05-15] MEDS ORDERED: PANTOPRAZOLE 40 MG/10 ML VIAL ONE (09:00)
[2017-05-15] MEDS ORDERED: METOPROLOL SUCCINATE (ER) 25 MG TAB.ER.24H PO ONE (09:00)
[2017-05-15 11:34] VITALS: BP 115/65; PULSE 81
--- NOTE | 2017-05-15 11:57 | P.PN ---
Subjective Principal diagnosis: GI bleed This is a 66-year-old gentleman with history of atrial fibrillation, ischemic cardio myopathy and prior AICD, prior VT, who presented to the hospital with a GI bleed. He underwent a EGD and colonoscopy yesterday. EGD revealed antral erosive gastritis with no evidence of bleeding. Colonoscopy revealed moderate left-sided diverticulosis and small internal hemorrhoids. Patient was seen and examined this morning, feels well overall, denies any blood in his stool or black stool. Blood pressure this morning 115/60. We have continue to hold his chest over. He may be discharged home today, and trestle can be resumed as an outpatient. He has been instructed to take his blood pressure twice a day. Objective - Vital Signs Vital signs: Vital Signs Temp 98.7 F 05/15/17 07:49 Pulse 81 05/15/17 11:21 Resp 16 05/15/17 11:21 BP 115/65 05/15/17 11:21 Pulse Ox 96 05/15/17 11:21 Intake & Output 05/14/17 05/15/17 05/15/17 18:59 06:59 18:59 Intake Total 920 250 Output Total 500 750 600 Balance 420 -750 -350 Weight 100.6 kg 101.3 kg Intake: IV 670 Magnesium Sulfate-D5w Pmx 200 1 gm In Dextrose/Water 1 100ml.bag @ 100 mls/hr IVPB Q1H [facility] Rx#: [id number] Potassium Chloride 10 meq 200 Lidocaine 2% Inj 10 mg In Sodium Chloride 0.9% 100 ml @ 100 mls/hr IV Q1HR [facility] Rx#:[id number] Sodium Chloride 0.9% 1, 120 000 ml @ 60 mls/hr IV . [id number] [facility] Rx#:[id number] Oral 250 250 Output: Urine 500 750 600 Other: Voiding Method Urinal Urinal # Voids 0 # Bowel Movements 1 - Exam PHYSICAL EXAMINATION: HEENT: Head is atraumatic, normocephalic. Pupils equal, round. Neck is supple. There is no elevated jugular venous pressure. HEART EXAMINATION: Heart S1, S2 normal. No murmur or gallop heard. CHEST EXAMINATION: Lungs are clear to auscultation and precussion. No chest wall tenderness is noted on palpation or with deep breathing. ABDOMEN: Soft, nontender. Bowel sounds are heard. No organomegaly noted. EXTREMITIES: 2+ peripheral pulses with no evidence of peripheral edema and no calf tenderness noted. NEUROLOGIC patient is awake, alert and oriented -3. . - Labs CBC & Chem 7: 05/15/17 04:10 05/15/17 04:10 Labs: Abnormal Lab Results - Last 24 Hours (Table) 05/14/17 05/14/17 05/15/17 Range/Units 15:55 21:38 04:10 RBC 2.96 L 3.00 L (4.30-5.90) m/uL Hgb 7.8 L 7.9 L (13.0-17.5) gm/dL Hct 25.8 L 25.9 L (39.0-53.0) % MCHC 30.3 L 30.3 L (31.0-37.0) g/dL RDW 16.7 H 17.0 H (11.5-15.5) % Neutrophils # 8.3 H (1.3-7.7) k/uL Lymphocytes # 0.8 L (1.0-4.8) k/uL Sodium 136 L (137-145) mmol/L BUN 8 L (9-20) mg/dL 05/15/17 Range/Units 04:10 RBC 3.02 L (4.30-5.90) m/uL Hgb 8.0 L (13.0-17.5) gm/dL Hct 25.9 L (39.0-53.0) % MCHC 30.7 L (31.0-37.0) g/dL RDW 17.2 H (11.5-15.5) % Neutrophils # (1.3-7.7) k/uL Lymphocytes # (1.0-4.8) k/uL Sodium (137-145) mmol/L BUN (9-20) mg/dL Assessment and Plan (1) Chronic a-fib Status: Acute (2) Ischemic cardiomyopathy Status: Acute (3) AICD (automatic cardioverter/defibrillator) present Status: Acute (4) Acute GI bleeding Status: Acute (5) Warfarin-induced coagulopathy Status: Acute (6) Ventricular tachycardia Status: Acute Plan: From cardiology's perspective, we will recommend to continue the patient on his current medications. He's also been instructed to check his blood pressure twice a day at home, we will continue to hold the chest which may be resumed as an outpatient. DNP note has been reviewed, I agree with a documented findings and plan of care. Patient was seen and examined.
--- NOTE | 2017-05-15 12:45 | PN ---
Patient is a 66-year-old pleasant, white male admitted to the hospital with acute GI bleed. He underwent an upper endoscopy as well as colonoscopy yesterday which showed antral erosive gastritis and left-sided diverticulosis. No active bleeding noted at the time of examination. He was started on a soft diet. Doing well this morning. He denies any complaints. No further episodes of bleeding. He denies any abdominal pain. Reports no nausea or vomiting. On physical examination, appears comfortable in no apparent distress. Vital signs are stable. Blood pressure 132/86, pulse rate 86 per minute and afebrile. HEENT examination unremarkable. Conjunctivae pink. Sclerae anicteric. Oral cavity, no lesions. NECK: No JVD or lymph node enlargement. Chest was clear to auscultation. HEART: Regular rate and rhythm. ABDOMEN: Soft. Bowel sounds are positive. No organomegaly. EXTREMITIES: No pedal edema. SKIN: No rashes. NEURO: Alert and oriented x3. No focal deficits. Labs from today, hemoglobin 8 g/dL. IMPRESSION: Acute gastrointestinal bleed possibly diverticular in etiology, status post esophagogastroduodenoscopy and colonoscopy yesterday that showed antral erosive gastritis and left-sided diverticulosis. Bleeding resolved spontaneously. Patient hemodynamically stable and last hemoglobin 8 g/dL. RECOMMENDATIONS: 1. Continue with the soft diet. 2. He can be discharged home today with an outpatient follow up in 2 weeks.
--- NOTE | 2017-05-15 12:47 | PN ---
Patient is a 66-year-old pleasant white male admitted to the hospital with acute GI bleed. He underwent an upper endoscopy as well as colonoscopy yesterday that showed evidence of antral erosive gastritis and sigmoid diverticulosis with no active bleeding. Today, he is doing better. No further episodes of bleeding. No abdominal pain. No nausea, vomiting. Soft diet, tolerating well. On physical examination, appears comfortable in no apparent distress. Vital signs stable. Blood pressure is 97/82, pulse 82 per minute and afebrile. HEENT examination unremarkable. Conjunctivae pink. Sclerae anicteric. Oral cavity, no lesions. NECK: No JVD or lymph node enlargement. CHEST: Clear to auscultation. HEART: Regular rate and rhythm. ABDOMEN: Soft. Bowel sounds are positive. No organomegaly. EXTREMITIES: No pedal edema. SKIN: No rashes. NEURO: Alert and oriented x3. No focal deficits. LABS: Hemoglobin 8, WBC 8.9, platelets 194, INR is 1.2. IMPRESSION: Acute gastrointestinal bleed, possibly diverticular in etiology, status post esophagogastroduodenoscopy and colonoscopy yesterday that showed evidence of antral erosive gastritis and left-sided diverticulosis with no further bleeding. RECOMMENDATIONS: 1. Continue with a soft diet. 2. He can be discharged home today with an outpatient follow up in 2 to 3 weeks.
--- NOTE | 2017-05-15 14:01 | PN ---
This is a 66 who was in the ICU up until yesterday. He was transferred out of the ICU after an EGD and colonoscopy. The patient is doing relatively well. The patient may be discharged home today or tomorrow. His hemoglobin has been holding stable. He did receive 1 unit of PRBCs. Most recent chest x-ray did not show anything acute. His procedure showed evidence of erosive gastritis involving the antrum of the stomach, but there was no evidence of acute or active upper GI bleed. Colonoscopy revealed moderate left-sided diverticulosis small internal hemorrhoids. No active bleeding. Currently, vital signs include temperature 97, heart rate 81, respirations 16, blood pressure 115/65, mean 81, room air saturation 96%. The patient appears in no acute distress. HEENT examination is grossly unremarkable. Mucous membranes are moist. No oral lesions. Neck is supple. Full range of motion. No adenopathy or thyromegaly. Neck veins are flat. Cardiovascular examination reveals regular rhythm and rate. S1, S2 normal. No murmur noted. Lungs reveal clear breath sounds. No wheezes or rhonchi. ABDOMEN: Soft. Bowel sounds are heard. No masses or tenderness. EXTREMITIES: Intact. No cyanosis, clubbing, or edema. Skin is without rash. ASSESSMENT: 1. Acute gastrointestinal bleed, likely secondary to antral gastritis and/or diverticulosis. Those were of the findings on EGD and colonoscopy. 2. Status post 1 unit of PRBCs for his symptomatic anemia. 3. Coumadin-induced coagulopathy. 4. Coronary artery disease, status post bypass grafting. 5. History of chronic atrial fibrillation, stable. 6. Severe ischemic cardiomyopathy with an ejection fraction of less than 20%, status post AICD. 7. Hyperlipidemia. 8. Chronic obstructive pulmonary disease, stable. 9. History of chronic tobacco use. 10. Previous history of diverticulosis. PLAN: The patient is doing well. There was no acute or active bleeding on EGD or colonoscopy. Findings were consistent with diverticular disease as well antral gastritis with erosions. There was no active bleeding. The patient seemed to be relatively stable. Chest x-ray is stable. Today's lab data shows a white count of 8.9, hemoglobin 8, hematocrit 25.9, platelet count 194,000. PT, INR normal. Electrolytes are relatively normal. Sodium 136, BUN and creatinine were 8 and 1.20. We will continue to follow.
--- NOTE | 2017-05-15 16:20 | DS ---
DATE OF ADMISSION: 05/11/2017 DATE OF DISCHARGE: FINAL DIAGNOSES: 1. Lower gastrointestinal bleeding with acute diverticular bleed with acute blood loss anemia, symptomatic, status post transfusion. 2. Status post EGD and colonoscopy showing antral erosive gastritis and significant diverticulosis without any stigmata of any recent gastrointestinal bleed. 3. Relative hypotension as well as hypertensive shock secondary to acute blood loss anemia, and gastrointestinal bleed, present on admission. 4. Increased WBC, possibly reactive. 5. Anemia, normocytic. 6. Coumadin monitoring. 7. Chronic obstructive pulmonary disease. 8. History of deep venous thrombosis. 9. History of gastroesophageal reflux disease. 10. History of myocardial infarction. 11. History of sleep apnea, CPAP. 12. History of degenerative joint disease. 13. History of automatic implantable cardioverter defibrillator. 14. History of cardiac catheterization and ablation. 15. History of cholecystectomy. 16. History of coronary artery disease, coronary artery bypass grafting and stent. 17. History of nicotine dependence. 18. Obesity, body mass index of 30.6. 19. 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 20. FULL CODE. DISCHARGE DISPOSITION: The patient will be discharged in stable condition with guarded prognosis. Total time taken is 35 minutes. Discharge cleared by multiple consultants. HISTORY OF PRESENT ILLNESS: This 66-year-old gentleman with a past medical history of multiple medical problems was admitted with acute lower gastrointestinal bleeding and acute symptomatic anemia. Hemoglobin dropped to 7.2. After transfusion currently to stabilized. EGD and colonoscopy done by Dr. Reynolds. Seen by multiple consultants also. On exam, vitals are stable. CARDIOVASCULAR SYSTEM: S1, S2 muffled. ABDOMEN: Soft. Nervous system: No focal deficits. Hemoglobin 8, at this time. Discharge advice: 1. Diet is cardiac. 2. Activity limited until follow-up. 3. Follow-up with Dr. Dietz in two to three days. 4. CBC, BMP. 5. Follow-up with Dr. Reynolds and cardiology as recommended. Medications are as follows: 1. Albuterol 2.5 q.i.d. and p.r.n. 2. Zyloprim 200 mg p.o. b.i.d. 3. Hold the aspirin, Plavix and NSAIDS and Celebrex for now. 4. Advair 1 puff b.i.d. 5. Lasix 40 mg daily. 6. Atrovent 2 puffs q.i.d. 7. Levaquin 500 mg p.o. daily for 3 days. 8. Metoprolol 25 mg p.o. b.i.d. 9. Mexitil 150 mg p.o. q8h. 10. Multivitamin 1 p.o. daily. 11. Nitrostat 0.4 sublingual p.r.n. 12. Entresto 25/26 one p.o. b.i.d. half tablet. 13. Aldactone 25 mg daily. 14. Flomax 0.4 q.h.s. Once again, the patient will be discharged in stable condition with guarded prognosis.
== END 2017-05-15 16:50 | disposition home or self-care (01) | DRG 377 ==
LOC: 6SEL 20:28 → 6ICU 05-12 00:15 → 6SEL 05-14 11:05
PROVIDERS: ADMIT Internal Medicine; ATTEND Internal Medicine
PROC: 30233N1 Transfusion of Nonautologous Red Blood Cells into Peripheral Vein, Percutaneous Approach (ICD-10-PCS; 2017-05-13)
PROC: 0DJD8ZZ Inspection of Lower Intestinal Tract, Via Natural or Artificial Opening Endoscopic (ICD-10-PCS; principal; 2017-05-14 09:30)
PROC: 0DB68ZX Excision of Stomach, Via Natural or Artificial Opening Endoscopic, Diagnostic (ICD-10-PCS; 2017-05-14 09:30)
DX: K57.31 Diverticulosis of large intestine without perforation or abscess with bleeding (principal); R57.8 Other shock; I47.2 Ventricular tachycardia; G72.0 Drug-induced myopathy; D62 Acute posthemorrhagic anemia; I08.1 Rheumatic disorders of both mitral and tricuspid valves; I48.2 Chronic atrial fibrillation; E78.5 Hyperlipidemia, unspecified; E66.9 Obesity, unspecified; G47.33 Obstructive sleep apnea (adult) (pediatric); I25.10 Atherosclerotic heart disease of native coronary artery without angina pectoris; I25.2 Old myocardial infarction; I25.5 Ischemic cardiomyopathy; I71.4 Abdominal aortic aneurysm, without rupture; J44.9 Chronic obstructive pulmonary disease, unspecified; K21.9 Gastro-esophageal reflux disease without esophagitis; K29.60 Other gastritis without bleeding; K64.8 Other hemorrhoids; R79.1 Abnormal coagulation profile; T45.515A Adverse effect of anticoagulants, initial encounter; M19.90 Unspecified osteoarthritis, unspecified site; T50.995A Adverse effect of other drugs, medicaments and biological substances, initial encounter; N40.0 Benign prostatic hyperplasia without lower urinary tract symptoms; Z68.30 Body mass index [BMI] 30.0-30.9, adult; Z87.891 Personal history of nicotine dependence; Z95.810 Presence of automatic (implantable) cardiac defibrillator; Z95.5 Presence of coronary angioplasty implant and graft; Z95.1 Presence of aortocoronary bypass graft; Z79.01 Long term (current) use of anticoagulants; Z79.02 Long term (current) use of antithrombotics/antiplatelets; Z79.82 Long term (current) use of aspirin; Z79.899 Other long term (current) drug therapy; Z88.8 Allergy status to other drugs, medicaments and biological substances; Y92.009 Unspecified place in unspecified non-institutional (private) residence as the place of occurrence of the external cause
CPT/HCPCS: 43239; 45378; 71010; 80048; 83735; 84100; 84132; 85025; 85027; 85610; 86850; 86900; 86901; 86920; 88305; 88342; 93306; 94640

== ENCOUNTER 2017-05-19 19:03 | Emergency (ER) | payer MEDICARE, OTHER ==
--- NOTE | 2017-05-19 19:57 | ED ---
General Adult HPI - General Chief complaint: Extremity Problem,Nontraumatic Stated complaint: Dr Ferguson/Gulshan DVT in arm Time Seen by Provider: 05/19/17 19:28 Source: patient, RN notes reviewed, old records reviewed Mode of arrival: wheelchair Limitations: no limitations - History of Present Illness Initial comments: This is a 66-year-old male to the ER for evaluation. Today patient presents for evaluation of left upper extremity swelling and edema. Patient has no history due to her blood clots. On blood thinners. Patient states he was recently admitted to the hospital. Lung [place] time, had 2 different IVs in his left upper extremity. The last 2 days been noticing increasing swelling and subsequent pain in that left upper extremity, no erythema. No other complaints - Related Data Home Medications Medication Instructions Recorded Confirmed Albuterol Sulfate [Proair Hfa] 1 puff INHALATION RT-QID PRN 04/23/14 05/19/17 Fluticasone/Salmeterol [Advair 1 puff INHALATION RT-BID 04/23/14 05/19/17 250-50 Diskus] Spironolactone [Aldactone] 25 mg PO DAILY 04/23/14 05/19/17 Ipratropium [place] [Atrovent Hfa] 2 puff INHALATION RT-TID PRN 05/28/14 Furosemide [Lasix] 40 mg PO DAILY 04/22/15 05/19/17 Sacubitril/Valsartan [Entresto 24 0.5 tab PO BID 02/26/16 05/19/17 mg-26 mg Tablet] Allopurinol [Zyloprim] 200 mg PO BID 05/11/17 05/19/17 Multivitamins, Thera [Multivitamin 1 tab PO DAILY 05/11/17 05/19/17 (formulary)] Tamsulosin [Flomax] 0.4 mg PO HS 05/11/17 05/19/17 Previous Rx's Medication Instructions Recorded Nitroglycerin Sl Tabs [Nitrostat] 0.4 mg SUBLINGUAL Q5M PRN #25 tab 05/15/15 Mexiletine [Mexitil] 150 mg PO Q8HR cap 03/12/16 Albuterol Nebulized [Ventolin 2.5 mg INHALATION RT-QID #1 05/15/17 Nebulized] Metoprolol Succinate (ER) [Toprol 25 mg PO BID #60 tab 05/15/17 XL] Allergies Allergy/AdvReac Type Severity Reaction Status Date / Time alirocumab Allergy Swelling Verified 05/19/17 19:52 [From Praluent Pen] Brsjuxz-Jar-Oxo Reductase Allergy Swelling/My Verified 05/19/17 19:52 Inhibitor algia steriods AdvReac Abdominal Uncoded 05/19/17 19:10 Pain/Constipation Review of Systems ROS Statement: Those systems with pertinent positive or pertinent negative responses have been documented in the HPI. ROS Other: All systems not noted in ROS Statement are negative. Past Medical History Past Medical History: COPD, Deep Vein Thrombosis (DVT), GERD/Reflux, Myocardial Infarction ([place]), Osteoarthritis (OA), Pulmonary Embolus (PE), Sleep Apnea/CPAP/ BIPAP Additional Past Medical History / Comment(s): SLEEP APNEA DOES'NT USE CPAP MACHINE. SEE DR ADRIEN Capellan, "NOSE BLEEDS SINCE TUESDAY" (2015) Last Myocardial Infarction Date:: 1998 History of Any Multi-Drug Resistant Organisms: None Reported Past Surgical History: AICD, Cardiac Ablation, Cholecystectomy, Coronary Bypass/ CABG, EPS, Heart Catheterization With Stent, Orthopedic Surgery Additional Past Surgical History / Comment(s): CARDIOVERSIONS, CABG X4 (10/28/13) , STENT X3, SYED FILTER, RT ANKLE SX WITH MESH. 03-02-16 ep study-see dr adrien capellan Past Anesthesia/Blood Transfusion Reactions: No Reported Reaction Additional Past Anesthesia/Blood Transfusion Reaction / Comment(s): MOM PONV Date of Last Stent Placement:: 04/2015 Type of Cardiac Device: AICD Device Placement Date:: UNKNOWN, [employer] Past Psychological History: No Psychological Hx Reported Smoking Status: Former smoker Past Alcohol Use History: None Reported Past Drug Use History: None Reported - Past Family History Brother(s) Family Medical History: Cancer Additional Family Medical History / Comment(s): LEUKEMIA Mother Additional Family Medical History / Comment(s): ENLARGED HEART Father Additional Family Medical History / Comment(s): BLOOD CLOT IN THE BRAIN General Exam - General Exam Comments Initial Comments: Significant slight left upper extremity from elbow to hand, positive radial pulse 2+, no erythema no warmth Limitations: no limitations General appearance: alert, in no apparent distress Head exam: Present: atraumatic, normocephalic, normal inspection Eye exam: Present: normal appearance, PERRL, EOMI. Absent: scleral icterus, conjunctival injection, periorbital swelling ENT exam: Present: normal exam, mucous membranes moist Neck exam: Present: normal inspection. Absent: tenderness, meningismus, lymphadenopathy Respiratory exam: Present: normal lung sounds bilaterally. Absent: respiratory distress, wheezes, rales, rhonchi, stridor Cardiovascular Exam: Present: regular rate, normal rhythm, normal heart sounds. Absent: systolic murmur, diastolic murmur, rubs, gallop, clicks GI/Abdominal exam: Present: soft, normal bowel sounds. Absent: distended, tenderness, guarding, rebound, rigid Extremities exam: Present: normal inspection, full ROM, normal capillary refill. Absent: tenderness, pedal edema, joint swelling, calf tenderness Back exam: Present: normal inspection Neurological exam: Present: alert, oriented X3, CN II-XII intact Psychiatric exam: Present: normal affect, normal mood Skin exam: Present: warm, dry, intact, normal color. Absent: rash Course Vital Signs 05/19/17 05/19/17 05/19/17 19:06 20:00 21:12 Temperature 97.5 F L Pulse Rate 84 79 78 Respiratory 20 18 18 Rate Blood Pressure 110/66 118/89 117/62 O2 Sat by Pulse 100 98 98 Oximetry Medical Decision Making - Medical Decision Making 66 [address] for evaluation of left upper extremity edema secondary to IVs and left upper extremity, no evidence of DVT. Patient will be discharged home to continue to raisin elevate left upper extremity - Radiology Data Radiology results: report reviewed (Ultrasound left upper extremity negative for DVT), image reviewed Disposition Clinical Impression: Arm edema, Edema of upper extremity, Thrombophlebitis of arm Narrative: Left upper extremity edema, thrombophlebitis, superficial, no DVT Disposition: HOME SELF-CARE Condition: Good Instructions: Edema (ED) Referrals: None,Stated [Primary Care Provider] - 1-2 days
[2017-05-19 20:23] VITALS: RESP 18
[2017-05-19] MEDS ORDERED: HYDROcodone/APAP 5-325MG 1 EACH TAB PO STA (21:03)
--- NOTE | 2017-05-19 21:08 | US ---
EXAMINATION TYPE: US VENOUS DOPPLER DUPLEX UE LT DATE OF EXAM: 05/19/2017 COMPARISON: NONE CLINICAL HISTORY: Pain and swelling left arm after recent IV. SIDE PERFORMED: Left LEFT UPPER EXTREMITY: No evidence of venous filling defect. IMPRESSION: Negative for deep venous thrombosis.
[2017-05-19 21:53] VITALS: BP 112/70; PULSE 89; TEMP 98.7
== END 2017-05-19 22:12 | disposition home or self-care (01) ==
LOC: EC 19:03
DX: I80.8 Phlebitis and thrombophlebitis of other sites (principal); J44.9 Chronic obstructive pulmonary disease, unspecified; Z87.891 Personal history of nicotine dependence; Z79.51 Long term (current) use of inhaled steroids; Z79.899 Other long term (current) drug therapy; Z88.8 Allergy status to other drugs, medicaments and biological substances; Z86.718 Personal history of other venous thrombosis and embolism; Z95.810 Presence of automatic (implantable) cardiac defibrillator
CPT/HCPCS: 99284

== ENCOUNTER 2021-05-04 06:31 | Day surgery (SDC) | payer MEDICARE, OTHER ==
[2021-04-30 11:45] VITALS: BMI 31.1
[~2021-05-04 06:31] MED LIST: SODIUM CHLORIDE 0.9% 1,000 ML IV SCH; ceFAZolin 1 GM in SODIUM CHLORIDE 0.9% 250 ML IRRIGATION PRN
[2021-05-04] MEDS ORDERED: SODIUM CHLORIDE 0.9% 1,000 ML IV ONE (07:13)
[2021-05-04 07:17] VITALS: RESP 16; TEMP 97.9
[2021-05-04 08:00] LABS: INR 2.6 (<1.2); Prothrombin Time 25.5 sec (9.0-12.0)
[2021-05-04] MEDS ORDERED: fentaNYL (PF) 50 MCG/ML 2 ML AMP ONE (08:25)
[2021-05-04] MEDS ORDERED: MIDAZOLAM 2 MG/2 ML VIAL ONE (08:25)
[2021-05-04] MEDS ORDERED: KETAMINE 10 MG/ML 20 ML VIAL ONE (08:25)
[2021-05-04] MEDS ORDERED: PROPOFOL 10 MG/ML 20 ML VIAL IV ONE (08:25)
[2021-05-04] MEDS ORDERED: LIDOCAINE 1% INJ 10MG/ML (20 ML MDV) ONE (08:43)
[2021-05-04] MEDS ORDERED: LIDOCAINE 1% INJ 10MG/ML (20 ML MDV) SQ ONE (09:05)
[2021-05-04] MEDS ORDERED: ALBUTEROL NEBULIZED 2.5 MG/3 ML INHALATION PRN (10:07)
[2021-05-04] MEDS ORDERED: ACETAMINOPHEN TAB 325 MG TAB PO PRN (10:08)
[2021-05-04] MEDS ORDERED: ACETAMINOPHEN IV (For NPO) 1,000 MG in EMPTY BAG 1 BAG IVPB ONE (10:08)
[2021-05-04] MEDS ORDERED: VANCOMYCIN 1,250 MG in SODIUM CHLORIDE 0.9% 250 ML IVPB STA (10:28)
--- NOTE | 2021-05-04 10:57 | CE ---
CARDIAC ELECTROPHYSIOLOGY REPORT This is a 70-year-old male patient with ischemic cardiomyopathy, congestive heart failure class 2-3 with a Bi V ICD and underlying persistent atrial fibrillation. His Bi V ICD was at [facility] and he was brought in for an Bi V ICD generator change. His LV thresholds are elevated. The patient is brought to the EP lab in a fasting state. Written informed consent was obtained prior to the procedure. Fluoroscopy with the leads was performed. No fractures or breaks were noted in the RV lead on the LV lead. The left pectoral area was prepped and draped as per protocol. 1% lidocaine was used for local anesthesia. A 4 cm incision was made over the generator and carried down to the level of the generator. A partial capsulectomy was performed. The leads were disconnected from the CNS Response device and the new generator was implanted ([employer] model number [id number], serial number [id number]. The atrial lead was a Guidant 4470, 52 cm in length and serial #[id number] and was originally implanted in 2001. The patient was in atrial fibrillation. Chronic ICD lead was a Guidant model #0148, 64 cm length and serial #[id number]. No fractures or breaks on fluoroscopy. The LV lead was a [employer] model #1156T, serial #[id number] implanted in the lateral vein. The LV threshold was elevated and chronically so 2.75 V at 1.5 milliseconds, pacing impedance of 1513 ohms, R-waves of 27 mV. The new generator was implanted. Hemostasis was assured and the wound was closed in 3 layers and dressed per protocol. Previously, the patient's DFT was at 11 joules. The atrial pacing impedance was 494 ohms. RV pacing impedance was 874 ohms. R-waves 17 mV, high-voltage impedance 60 ohms and pacing threshold 1 V at 0.4 milliseconds for the ICD lead. The device was then programmed to VT zone of 176 beats per minute, VF zone at 222 beats per minute. Appropriate antitachycardia pacing cardioversion defibrillation programmed. Wave lead for morphology discrimination was turned on with first cardioversion at 11 joules, first defibrillation at 20 joules, appropriate antitachycardia pacing cardioversion defibrillation programmed. LV offset 20 milliseconds. RESULT: 1. Successful Bi V ICD generator change. 2. No fractures or breaks noted in the LV lead. MMODL / IJN: [id number] /
[2021-05-04 12:22] VITALS: BP 130/80; PULSE 73
[2021-05-04] MEDS ORDERED: MEXILETINE 150 MG CAP PO SCH (16:00)
[2021-05-05] MEDS ORDERED: lisinopriL 5 MG TAB PO SCH (09:00)
[2021-05-05] MEDS ORDERED: METOPROLOL SUCCINATE (ER) 50 MG TAB.ER.24H PO SCH (09:00)
[2021-05-05] MEDS ORDERED: FUROSEMIDE 40 MG TAB PO SCH (09:00)
== END 2021-05-04 12:43 | disposition home or self-care (01) ==
LOC: CATHEP 06:31
PROVIDERS: ATTEND Internal Medicine Clinical Cardiac Electrophysiology
DX: Z45.02 Encounter for adjustment and management of automatic implantable cardiac defibrillator (principal); I48.19 Other persistent atrial fibrillation; I25.5 Ischemic cardiomyopathy; I47.2 Ventricular tachycardia; J44.9 Chronic obstructive pulmonary disease, unspecified; I11.0 Hypertensive heart disease with heart failure; I50.9 Heart failure, unspecified; I25.10 Atherosclerotic heart disease of native coronary artery without angina pectoris; Z79.899 Other long term (current) drug therapy; Z95.810 Presence of automatic (implantable) cardiac defibrillator; Z20.822 Contact with and (suspected) exposure to COVID-19; Z79.01 Long term (current) use of anticoagulants
CPT/HCPCS: 33264; 85610; 87635; C1882; J2250; J3370; J0690; J2001; J3010; J2704